=== PATIENT | male | born 1940 | race Caucasian/White ===

== ENCOUNTER 2019-06-08 10:10 | Inpatient (IN) | payer OTHER ==
[~2019-06-08] VITALS: Ht 180.3 cm; Wt 95.6 kg
--- NOTE | ~2019-06-08 | D ---
[facility] [place] [address] DISCHARGE SUMMARY Name: GURINDER PACHECO Room #: 521A-A [facility] IN M.R.#: [id number] Admission: 06/08/19 Attend Phys: Evan Argueta DO Discharge: 06/23/19 Date of : 38 Report #: [id number] THIS REPORT FOR: cc: Paola Banks Rita M. DO Kerstein, Andrew H. DO ~ THIS REPORT FOR: //name// CC: Evan Banks DATE OF SERVICE: 06/23/2019 PSYCHIATRIC DISCHARGE SUMMARY ATTENDING PHYSICIAN: Evan Argueta DO. TANK FARM GAUGER AT THE TIME OF DISCHARGE: Ghulam Cornejo MD DISCHARGE DIAGNOSES: Major neurocognitive disorder, likely due to Alzheimer's disease with possible vascular component with behavioral disturbance, improved. 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 MEDICAL COMORBIDITIES: Include atelectasis, resolved; hypertension; diabetes mellitus type 2 ____ in the hospital; hyperlipidemia. DIET: Diabetic and heart healthy. ACTIVITY LEVEL: As tolerated. The patient will require 24/ supervision assistance. The patient is going to ____. Psychiatric and medical care to be performed by receiving facility. REASON FOR ADMISSION: Back on 06/08/2019, brought to the ER by family for psychosis and delusional behavior. The patient was living with his , but seems to be interfering with peaceful enjoyment and care. HOSPITAL COURSE: The patient was admitted to Geriatric Psychiatry Unit. He had no prior history of dementia diagnosis. Neuropsychological battery was done. It came back, done by Dr. Carlos Neff, with a diagnosis consistent with Alzheimer's, possibly vascular cause as well. The patient was rather objectionable about going to the facility and having his Uli HAIR involved. On the day of discharge, the patient said a family helper/driver is coming from [place], [place] and as far as I know, a basic financial power of helper/driver was completed. The helper/driver doing it was presented with his present limited capacity. [facility] [address] [place] [address] DISCHARGE SUMMARY Name: GURINDER PACHECO Room #: 521A-A [facility] IN .R.#: [id number] Admission: 06/08/19 Attend Phys: Evan Argueta DO Discharge: 06/23/19 Date of : 38 Report #: [id number] Several family meetings were held and the patient was paranoid about his Uli HAIR, managing his affairs so, the daughters who lived in the [place] area were a big help in getting meetings done and getting in place. The patient was ultimately placed and ____. DISCHARGE MEDICATIONS: 1. Sertraline 50 mg p.o. daily. 2. Tradjenta 5 mg p.o. daily. 3. Cyanocobalamin 1000 mcg p.o. daily. 4. Metformin 500 mg p.o. at bedtime. 5. Aspirin 81 mg p.o. daily. 6. Depakote 1250 mg p.o. daily. 7. Melatonin 5 mg p.o. at bedtime. 8. Irbesartan 300 mg p.o. daily. 9. Spironolactone 25 mg p.o. daily. 10. Pravastatin 20 mg p.o. daily. VITAL SIGNS: Stable. MENTAL STATUS EXAMINATION: This is a well-developed male, wearing glasses, using a walker. Attention limited. Concentration limited. Speech is normal rate. Thought process is linear and goal directed. Thought content focused on discharge. No psychomotor agitation. No psychomotor retardation. Denied SI or HI. Denied hopelessness or helplessness. No homicidal intent or plan. Memory noted to be impaired. Insight impaired. Judgment limited. Fund of knowledge, currently in the average range. REPEAT VITAL SIGNS: Temperature 36.6, pulse 87, respirations 16, BP 154/84, O2 sat 97% that was this morning. PROGNOSIS: For this patient is guarded given his major neurocognitive disorder, memory care placement. By: [id number] Evan Argueta, /nt
[2019-06-08 10:16] VITALS: BP 140/74
[2019-06-08] MEDS ORDERED: ZOLOFT100 MG PO (10:33)
[2019-06-08] MEDS ORDERED: ASA81BEC PO (10:33)
[2019-06-08] MEDS ORDERED: PRAVACHOL 20 MG20 M1 PO (10:34)
[2019-06-08] MEDS ORDERED: SPIRONOLACTONE25 MG PO (10:34)
[2019-06-08] MEDS ORDERED: AVAPRO300 MG PO (10:34)
[2019-06-08] MEDS ORDERED: KLOR-CON M2020 MEQ PO (10:34)
[2019-06-08] MEDS ORDERED: OCUVITE TABLET1 EAC1 PO (10:34)
[2019-06-08] MEDS ORDERED: JANUVIA100 MG PO (10:34)
[2019-06-08] MEDS ORDERED: VITAMIN D310000 UNIT PO (10:35)
[2019-06-08] MEDS ORDERED: ARICEPT10 M1 PO (10:35)
[2019-06-08 10:59] LABS: ABSOLUTE NEUTROPHILS 4.5 thou/uL (1.4-8.2); BASOPHILS 1.2 % (0.0-2.0); EOSINOPHILS 3.3 % (0.0-3.0); HEMATOCRIT 41.6 % (42.0-52.0); HEMOGLOBIN 14.1 gm/dL (14.0-18.0); LYMPHOCYTES 17.3 % (24.0-44.0); MCH 30.2 pg (26.0-34.0); MCV 88.7 fL (80.0-100.0); MONOCYTES 8.9 % (1.0-8.0); PLATELET COUNT 152 thou/uL (150-400); POLYS 69.3 % (36.0-66.0); RBC 4.68 mil/uL (4.50-6.00); RDW 13.9 % (10.5-14.5); WBC 6.6 thou/uL (4.0-11.0)
[2019-06-08 11:01] LABS: URINE BILIRUBIN NEGATIVE (Negative); URINE BLOOD NEGATIVE (Negative); URINE CLARITY CLEAR; URINE COLOR YELLOW; URINE GLUCOSE-RANDOM* NEGATIVE (Negative); URINE KETONES NEGATIVE (Negative); URINE LEUKOCYTES-REFLEX NEGATIVE (Negative); URINE NITRITE-REFLEX NEGATIVE (Negative); URINE PROTEIN (DIPSTICK) NEGATIVE (Negative); URINE UROBILINOGEN 0.2 E.U./dl (0.2-1.0)
[2019-06-08 11:19] LABS: ANION GAP 9 mmol/L (7-16); BUN 18 mg/dL (7-18); CALCIUM 9.4 mg/dL (8.5-10.1); CHLORIDE 104 mmol/L (98-107); CO2 27 mmol/L (21-32); CREATININE 1.1 mg/dL (0.7-1.3); GLUCOSE 104 mg/dL (74-106); POTASSIUM 4.2 mmol/L (3.5-5.1); SODIUM 140 mmol/L (136-145)
[2019-06-08 11:25] LABS: AMP/METHAMP Negative (Negative); BARBITURATES Negative (Negative); BENZODIAZEPINES Negative (Negative); COCAINE Negative (Negative); METHADONE Negative (Negative); OPIATES Negative (Negative); PCP Negative (Negative)
[2019-06-08 11:29] LABS: MAGNESIUM 2.1 mg/dL (1.8-2.4); SGOT 18 U/L (15-37); SGPT 24 U/L (30-65); TOTAL BILIRUBIN 0.4 mg/dL (<0.1-1.0); TOTAL PROTEIN 7.4 g/dL (6.4-8.2); TROPONIN-I <0.06 ng/mL (<0.06)
[2019-06-08 11:30] LABS: SALICYLATE < 2.8 mg/dL (2.8-20.0)
[2019-06-08 13:14] VITALS: BP 142/86
--- NOTE | 2019-06-08 14:04 | NUR ---
I was asked to assess German to see if he meets criteria for [facility]. I met with German, he is A/Ox4. German is experiencing paranoia. He informed me that someone has gotten a hold of his insurance records and financial records. He is experincing memory problems. He informed me that he lives in [facility]. He family informed me he in a long-term in the[place], [place] area. His family reports that he has been verbally aggressive with a resident at the long-term. Dr. Argueta will accept this patient.
[2019-06-08 14:31] VITALS: BP 138/79
--- NOTE | 2019-06-08 15:03 | EKG ---
[place] [address] [address] [facility] [place] [address] ELECTROCARDIOGRAM REPORT Name: GURINDER PACHECO Room #: 517-A ADM IN M.R.#: [id number] Admission: 06/08/19 Attend Phys: Evan Argueta DO Discharge: Date of : 38 Report #: [id number] THIS REPORT FOR: //name// ED Test Date: 2019-06-08 Test Time: 11:15:55 Pat Name: GURINDER PACHECO Department: Room: [facility] Gender: M Speaker Mounter: TERESA : 1940 Requested By: Sorin Rai Order Number: [id number] MD: Nba Reese Measurements Intervals Era Rate: 75 P: 45 IN: 241 QRS: -94 QRSD: 146 T: 40 QT: 444 QTc: 496 Interpretive Statements Sinus rhythm 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
--- NOTE | 2019-06-08 15:12 | NUR ---
DISCHARGE INSTRUCTIONS REVIEWED WITH PATIENT AND FMAILY INCLUDING DISCHARGE MEDICATIONS AND F/U RECOMMENDATIONS. PT/FAMILY DENY COMPLAINTS AND CONCERNS AND STATE UNDERSTANDING OF ABOVE. PT ESCORTED OFF FLOOR AT 1430 ACCOMPNIED BY NURSING STAFF AND FAMILY TO FAMILY PRIVATE VEHICLE-ALERT AND COOPERATIVE AT TIME OF DC-UP IN MOOD AND SMILING-DENIES COMPLAINTS/CONCERNS.DENIES SUICIDAL/HOMICIDAL OR SELF HARM THOUGHTS AT TIME OF DC
[2019-06-08 15:35] VITALS: BP 161/84
[2019-06-08 16:56] VITALS: BP 161/84
--- NOTE | 2019-06-08 17:03 | NUR ---
PT ARRIVES TO FLOOR VIA WC FROM ER ACCOMPNIED BY DAUGHTER. PT REPORTED TO LIVE AT [facility] AND AT ASSISTED LIVING HAS BEEN REPORTED TO BE INCREASINGLY PARANOID,HAVING VERBAL AGGRESSION TOWARD NURSING STAFF,REFUSING CARES AND MEDS AT ASSISTED LIVING,NOT SLEEPING AT NIGHT PER INTAKE SHEET-PT IS UNCOOPERATIVE WITH INTERVIEW STATING HE "DOESN'T NEED TO BE HERE" AND DENIES ANY RECENT PROBLEMS OR CONCERNS AT ASSISTED LIVING. FAMILY NOT PRESENT AT TIME OF NURSING ADMIT ASSESSMENT AND NO [place] RECORDS OR ER DOCUMENTATION AVAILABLE SO LIMITED BEHAVIORAL AND MEDICAL HISTORY AVAILABLE. THIS RN WILL ATTEMPT TO CALL FAMILY MEMBERS FOR ADDITIONAL INFORMATION. IS NOTED TO HAVE UNSTEADY GAIT AND IS NOT COMPLIENT WITH REQUESTS TO USE PRESSLEY INSISTING ON GETTING CHORDED CALL LIGHT OR GETS UP ON OWN-ASKING FOR PHONE REPEATDLY AND OVERHEARD IN ROOM CALLING VARIOUS PEOPLE ON PHONE ASKING THEM TO COME AND GET HIM AND TELLINF THEM HE DOESN'T NEED TO BE HERE. BP INITALLY ELEVATED AT UPON ARRIVAL TO UNIT AT 171/84-MANUAL RECHECK 142/[address] BONILLA HERE TO SEE PT AT APPROX. 1615-BS OBTAINED AT 1745 AND IS 165
--- NOTE | 2019-06-08 17:18 | NUR ---
PER PTS DAUGHTER JENA MAYERS PT IS REPORTED TO THINK DAUGHTERS ARE TAPPING HIS PHONE AT [facility]-THINKS DAUGHTER IN LAW IS HAVING AFFAIR WITH HIM AND THAT SHE AND SON ARE GETTING A DIVORCE-BELIEVES THAT [facility] IS PUTTING LAXATIVES IN HIS FOOD AND GETTING DIABETIS MEDICINE FROM [place]-FREQUENTLY REFUSING TO TAKE MEDICATION D/T BELIEVING IT IS TAINTED,WANTS TO FOOD AT [facility] ANALYZED D/T BELIEVING FAKE BEEF IS BEING USED. VERY ABUSIVE TO -CALLING HER REPEATDLY,TELLING HER THAT SHE IS STUPID OR AN IDIOT AND STATING SHE EATS DOG FOOD
[2019-06-08 19:37] VITALS: BP 123/62
--- NOTE | 2019-06-08 19:59 | NUR ---
ASSUMED CARE ON 06/08/19 @ 19:15, IN BED, AWAKE AND ORIENTED X2-3. COOPERATED WITH ASSESSMENT, HRRR, S1S2 NOTED, LUNGS CTA, ABD NORMOACTIVE X 4Q, REPORTS HAVING A BM TODAY. DENIES PAIN. DENIES SI OR HI, DENIES AH/VH. BED IN LOW POSITION, WILL CONTINUE TO OBSERVE Q 12 MINUTES FOR PATIENT SAFETY.
--- NOTE | 2019-06-09 00:17 | NUR ---
WHEN OFFERED PO HS MEDS, PATIENT PUT THE TABLETS IN HIS PANTS AND FAKED SWOLLOWING THEM. REFUSED TO GIVE THE TABLETS BACK, AND WOULD NOT ALLOW STAFF TO LOOK IN HIS POCKETS. A SECOND NURSE RETURNED WITH TO LOOK FOR THE PILLS. PATIENT THEN ALLOWED US TO LOOK IN HIS POCKET AND STOOD UP TO SEE IF THE PILLS WOULD FALL OUT. WHEN INVENTORY WAS DONE ON PATIENT'S WALLET, THE THREE PILLS WERE FOUND IN IT. PATIENT AMBULATED TO THE NURSES DESK AND DEMANDED A PHONE CALL TO CALL HIS . PATIENT WOULD NOT ACCEPT THE EXPLAINATION THAT PHONE CALLS ARE NOT ALLOWED THIS LATE AT NIGHT. HE CONTINUED TO ARGUE AND PHYSICALLY BLOCK THE DOOR TO THE NURSES STATION, KEEPING STAFF FROM EXITING AND ENTERING. ORDER OBTAINED FROM DAY COHEN ENERGY SCHEDULER FOR GEODON 10MG IM. GIVEN WITH X2 AND THEN X3 STAFF, WITH X2 AT FIRST AND THEN X4 SECURITY ASSISTANCE. PATIENT WAS KICKING STAFF, HITTING STAFF AND ROLLING AWAY FROM THE INJECTION RESULTING IN PATIENT NOT GETTING A FULL INJECTION. DAY COHEN INFORMED OF THE PROBLEM, AND HE GAVE THE ORDER TO WAIT 30 MINUTES AND SEE WHAT HIS LEVEL OF VIOLENCE AND AGITATION WOULD BE AT THAT POINT. PATIENT CONTINUED TO ARGUE, TO REFUSE TO SIT OR LIE ON THE BED AND GET UP. X1 SECURITY AND X1 NURSING STAFF AT BEDSIDE TO OBSERVE FOR PATIENT'S SAFETY.
--- NOTE | 2019-06-09 00:28 | NUR ---
PATIENT REFUSED TO GIVE UP HIS WATCH, AND FOUGHT WITH SECURITY THEY TOOK HIS WATCH OFF, CAUSING SKIN TEARS ON HIS LEFT HAND AND LEFT FOREARM. AFTER 30 MINUTES OF PATIENT ARGUING AND REFUSING TO LIE ON THE BED, PATIENT REQUESTED AND WAS GIVEN A URINAL AND HE VOIDED 100 CC OF CLEAR LIGHT YELLOW URINE. PATIENT LAID DOWN FOR ABOUT 10 MINUTES, BUT CONTINUED ARGUING AND TALKING ABOUT UNRELATED THINGS LIKE HIS BEING ON A DIABETIC DIET, AND HIM WANTING TO SEE THE APPRENTICE ELECTRICIAN'S PICTURES OF HER FOOD.
--- NOTE | 2019-06-09 00:37 | NUR ---
NEW ORDER OBTAINED FOR HALDOL 5 MG PO AND LORAZEPAM 1MG PO. IF PATIENT REFUSES PO OR BECOMES VIOLENT, MAY GIVE GEODON 10MG IM. IF PATIENT REFUSES PO HALDOL AND LORAZEPAM. PATIENT IS SITTING ON BED AND ARGUING ABOUT MULTIPLE TOPICS.
[2019-06-09 03:50] VITALS: BP 123/62
[2019-06-09 07:47] VITALS: BP 137/69
[2019-06-09 08:00] VITALS: BP 137/69
--- NOTE | 2019-06-09 16:14 | NUR ---
LISSETTE met with pt to get a background history. He spent much of the session talking about his and his children's achievements, and also how he believes his sons are stealing money from him. When LISSETTE asked him what brought him to the hospital, he responded his family dynamic and then began to talk about how specifically his oldest son's his planning on stealing money from his son. LISSETTE contacted [facility] assisted living and asked to speak to the DON. LISSETTE was told she was out, but a staff member who is familiar with pt will return her call. LISSETTE team will continue to follow pt during his stay on this unit.
--- NOTE | 2019-06-09 16:42 | NUR ---
LISSETTE spoke to Estefania and Amelia with [facility]. Pt does have a DPOA but it has not been enacted. Pt has been intrusive with other residents, and aggressive as of late;this is not his normal behaviors. It is Amelia's belief that pt suffers from dementia but he has not been given the official diagnosis. He also believes the detention is attempting to poison him and put him away. They said he has attempted to elope when he feels like he will be locked up. Estefania said his family has requested staff give him his meds; Amelia believes that may not be an option as pt does not trust staff at the moment. LISSETTE scheduled a family meeting with pt's for 06/12 @ 1330. SW team will continue to follow pt during his stay on this unit.
--- NOTE | 2019-06-09 18:00 | NUR ---
Assumed care of patient this am. Patient was irritable and refused medications. Patient can take medications whole. Patient ambulates with a walker and has a steady gate. Patient appeared to be suspicious this am with RN. Patient states that he did not sign up to be here and that someone will "Pay" for this mistake. After much communication with the patient he calmed down and was very polite for the remainder of the day. Patient amy a graph of a piece of land that he said he plans to subdivide and sell. Patient also states that he has many credentials and that he does not need to undergo testing at this facility. Patient also expressed anger towards one of his sons. Patient is continent of bowl and bladder. Patients assesment shows clear breath sounds, active bowel sounds, and s1 s2 heard with auscultation.
--- NOTE | 2019-06-09 20:13 | NUR ---
ASSUMED CARE ON 06/09/19 @ 19:15, IN ROOM IN BED. A&OX3. DOES NOT UNDERSTAND THAT HIS BEHAVIOR AND VERBAL ABUSE ARE PROBLEMATIC. SAYS THAT HE WANTS TO WORK ON HIS JOSE L TO PROVE HIS WHEREWITHALL TO BUY PROPERTY. ALSO WANTS TO TALK ABOUT NEEDING A NEW GLASSES PRESCRIPTION. HAS DIFFICULTY IDENTIFYING GOALS FOR HIS CARE IN [facility]. DOES STATE THAT HE WANTS TO CONTROL HIS DM, AGREES TO ACCEPT INSULIN SHOT AND FSBS ACUCHECK. HRRR, S1S2 NOTED, REPORTS BM TODAY ON 06/09. ABD SOUNDS N X 4 Q. REPORTS PAIN IN HIS HANDS 05/29, DENIES DESIRE FOR TYLENOL, REPORTS IS COMFORTABLE WITH THAT LEVEL OF PAIN. STATES WANTS TO GO HOME. DIFFICULTY FOCUSING ON APPROPRIATE GOALS FOR INPATIENT PSYCHIATRIC CARE. AMBULATES WITH A WALKER, OR WITH NO WALKER, NEEDS TO BE REMINDED USE WALKER. WILL CONTINUE TO MONITOR Q 12 MINUTES FOR PATIENT SAFETY.
[2019-06-09 20:19] VITALS: BP 140/80
[2019-06-09 23:59] VITALS: BP 140/80
--- NOTE | 2019-06-10 00:12 | NUR ---
PATIENT COOPERATED WITH MEDICATION ADMINISTRATION. THIS NURSE PRESENTED MEDS IN SEALED PACKET, SHOWING THE NAMES OF THE MEDICATION AND DOSAGE, EXPLAINED THE PURPOSE OF THE MEDICATION. PRESENTED IN PILL CUP WITH FRESH ICE WATER. PATIENT TOOK THE MEDS, WAS WILLING TO SHOW THIS NURSE THAT HE HAD SWOLLOWED THE PILLS. PATIENT DID NOT POCKET MEDS OR PRESENT ANY BEHAVIOR OF AVOIDING MEDICATION. CALM AND PLEASANT AFFECT NOTED. EDUCATION PROVIDED THAT IF THERE WERE ANY MEDICATIONS THAT HE WAS UNCOMFORTABLE TAKING, FOR PROCEDURE TO SPEAK TO THE DOCTOR IN MORNING ROUNDING AND DISCUSS THE MEDICATION. PATIENT EXPRESSED TRUST IN THIS NURSE AND HIS DAY NURSE, AND AGREED TO TAKE MEDICATIONS AND PARTICIPATE IN GROUP THERAPY. PATIENT WAS CONVERSATIONAL AND SHARED HIS INTERESTS IN [facility]. PT SPOKE OF HIS AND FOUR CHILDREN IN GENERAL POSITIVE TERMS. SLEEPING OF THIS WRITING. BED IN LOW POSITION, WILL CONTINUE TO ROUND Q 12 MINUTES FOR PATIENT SAFETY.
--- NOTE | 2019-06-10 05:50 | NUR ---
SLEPT 7.6 HOURS OVERNIGHT. @ 05:45 PHLEBOTAMY STAFF ATTEMPTED TO DRAW LABS, WHICH HE REFUSED, SAYING THAT HE NEEDED TO KNOW WHAT SCHOOL THE PHLEBOTAMIST ATTENDED, WHERE IS THE DOCTORS ORDER FOR THE LAB IS, WHERE ARE THE OTHER RN NURSES. PATIENT CAME OUT TO THE NURSES DESK AND BECAME INTRUSIVE AND DEMANDING, INTERFERING IN CARE OF OTHER PATIENTS. ESCORTED BACK TO HIS ROOM.
[2019-06-10 07:39] VITALS: BP 137/78
[2019-06-10 09:58] VITALS: BP 137/78
--- NOTE | 2019-06-10 10:10 | NUR ---
0648 RESUMMED CARE FROM OVERNIGHT SHIFT, PATIENT GOT UP WENT TO DAY ROOM. PATIENT ATE BREAKFAST TOOK MEDICATION WITHOUT INCIDENCE, PATIENT COOPERATIVE CALM THIS AM. WILL COTINUE TO MONITOR PATIENT FOR BEHAVIORS AND SAFETY.
--- NOTE | 2019-06-10 10:36 | NUR ---
LISSETTE called and spoke with Marilyn and she stated that her brother Uli Laguna was the DPOA
[2019-06-10 15:36] LABS: TSH 3.103 uIU/mL (0.358-3.740)
[2019-06-10 19:35] VITALS: BP 140/74
[2019-06-10 21:24] VITALS: BP 140/71
--- NOTE | 2019-06-10 22:02 | NUR ---
PATIENT WAS COOPERATIVE TONIGHT. HIS GLUCOSE WAS 118. HE DID TAKE HIS MEDS WHOLE. URINAL PLACED AT BEDSIDE. PATIENT DENIES PAIN. HE IS CALM WITH OCCASIONAL IRRITABILITY IN VOICE. PATIENT SLEEPING NOW.
--- NOTE | 2019-06-11 04:29 | NUR ---
PATIENT WAS UP TO BATHROOM AND BACK TO BED. PATIENT AMBULATES WITH WALKER. HE HAS BEEN COOPERATIVE AND REDIRECTABLE TONIGHT. PATIENT IS BACK TO BED AND SLEEPING AT THIS TIME. BED ALARM ON AND BED IN LOW POSITION.
[2019-06-11 07:47] VITALS: BP 126/75
--- NOTE | 2019-06-11 11:01 | NUR ---
Jamila ENRIQUEZ) with [facility] contacted SW team and left her contact information if there were further questions about pt. [phone]. SW team will continue to follow pt during his stay on this unit.
--- NOTE | 2019-06-11 12:15 | NUR ---
0700: Sitting in bed without s/o distress. Alert and orientated X4. States he wants to go home to take care of his . Calm, cooperative and compliant. Denies pain, SI/HI. Breath sounds clear t/o, bilaterally equal. Reg HR auscultated. Color pink with brisk capillary refill and palpable peripheral pulses. Clear yellow urine per urinal. Active bowel sounds over soft, rounded abdomen. Ambulates with walker without difficulty, steady gait. 1220 Daughter and son called. Participating in groups. No s/o distress. PT here this AM assessing pt.
[2019-06-11 18:09] LABS: SYPHILIS AB Non Reactive (Non Reactive)
[2019-06-11 19:26] VITALS: BP 139/69
--- NOTE | 2019-06-11 20:00 | H ---
[facility] [place] [address] HISTORY AND PHYSICAL Name: GURINDER PACHECO Room #: 517-A ADM IN M.R.#: [id number] Admission: 06/08/19 Attend Phys: Evan Argueta DO Discharge: Date of : 38 Report #: [id number] THIS REPORT FOR: //name// CC: Evan Guevara Oplotnik DATE OF SERVICE: 06/08/2019 INPATIENT PSYCHIATRIC EVALUATION ATTENDING PHYSICIAN: Evan Argueta DO. AIR INTERCEPT CONTROLLER: Josselyn Montanez MD REASON FOR ADMISSION: Psychosis, obstructive behaviors with the patient having a diagnosis of dementia. SOURCES OF INFORMATION: Brief interview with the patient, brief interview with family. It should be noted that the family was in the lobby, but the patient's spouse fell in the restroom and I could not get appropriate conversation because of that situation and affidavits. HISTORY OF PRESENT ILLNESS: This is a 78-year-old overweight male. Affidavit from Tita Pacheco Carlos, this is a daughter, states I witnessed my dad's behavior get continually worse. He thinks I bugged his cell phone and listening, blocked numbers, tampered with it. He reads all the text messages I sent my mom and he wants her to only speak to me on speakerphone. He is convinced where they lived at [facility] they are putting laxatives in the food they eat. They are feeding fake beef and wants the food analyzed. He thinks myself and my siblings are all getting a divorce, talks in circles about schemes and plots of a banker and his united states attorney and my brother involved and making no sense. Asked some of the questions of healthcare providers where we got to agree. If a minority, how they got here. Thinks Cortez is from [place] and not really a medication. He refused medication in last hospital stay, refused treatment and taking meds at home. Told by mom, she is so dumb, she would eat dog food. He is convinced son and getting , told him his banker told him he is having an affair with his yeoqtctw-zv-spx. Son and all of his kids certified letters claim that he will maria t brother over land exchange 10+ years ago. Thinks he has a ton of money, obsessed with money. On , he was difficult, ____ and my sister's living room and asked me if I saw it. Second affidavit from Talya Pacheco: He has accused me of bugging his phone and listening to his calls, has accused me of not paying for property that I purchased from him 15 years ago. Numerous verbally abusive phone calls telling people I am getting , not true, so this must be his . In summer, became very difficult, verbally abusive to the [facility] staff because he thought they were trying to commit him. Staff called me to [facility] [address] [place] [address] HISTORY AND PHYSICAL Name: GURINDER PACHECO Room #: 517-A [facility] IN M.R.#: [id number] Admission: 06/08/19 Attend Phys: Evan Argueta, Discharge: Date of : 38 Report #: [id number] talk to him. He has threatened to maria t me, acting rude and disorderly at [facility]. In early summer 2018, he was at [facility], was delusional and accused staff there of partying all night, crawled up the windows and partied on the roof. He accused my mother being so dumb she would eat dog food. The patient was medically cleared in the Emergency Room today by Dr. Rai. He noted that the patient moved to [facility] from [place], [place] 2 years ago, residing at [facility] with his . He commented on the paranoia and aberrant behavior, stated in the affidavits. The patient had no physical complaints, denied headache, fever, chills, cough, chest pain, shortness of breath, abdominal pain, nausea, vomiting or diarrhea. PCP is Dr. Banks in [place], toppiece cutter at [facility]. HOME MEDICATIONS: Aspirin 81 mg p.o. daily, sertraline 150 mg p.o. daily, sitagliptin phosphate which is Januvia 100 mg p.o. daily, irbesartan 300 mg p.o. daily, spironolactone 25 mg p.o. b.i.d. Vitamin A, C and E that is combination of vitamin, pravastatin which is Pravachol 20 mg p.o. daily, potassium chloride 20 mEq p.o. daily, donepezil 1 tab p.o. daily, vitamin D3 10,000 units p.o. weekly. ALLERGIES: No known allergies. REVIEW OF SYSTEMS: From the ER, CONSTITUTIONAL: Denies fever, chills, malaise, unexplained weight change. EYES: Denies eye pain, visual change or discharge. HENT: Denies hearing changes, ear drainage, ear infections, ear pain, neck pain or neck stiffness. RESPIRATORY: Denies cough, shortness of breath, hemoptysis or respiratory distress. CARDIOVASCULAR: Denies chest pain, chest pain with exertion or edema. GASTROINTESTINAL: Denies abdominal pain, nausea, vomiting or diarrhea. GENITOURINARY: Denies burning, frequency or dysuria. MUSCULOSKELETAL: Denies back pain, joint pain, muscle weakness or myalgias. SKIN: Denies rash. NEUROLOGIC: Denies weakness, headache or loss of consciousness. Otherwise, 10-point review of systems negative. LABORATORY DATA: Today, CBC grossly normal. Electrolytes within normal limits except ALT of 24, albumin was 4.0. Toxicology negative. Salicylate is less than 2.8, acetaminophen less than 2, alcohol less than 10. Urinalysis was negative. The patient, on my brief interview today, was asking about using telephone, being hypervigilant, at times pestering staff. PHYSICAL EXAMINATION: GENERAL: A well-developed, unkempt male, appearing stated age. [address] [address] HISTORY AND PHYSICAL Name: GURINDER PACHECO Room #: 517-A [facility] IN ..#: [id number] Admission: 06/08/19 Attend Phys: Evan Argueta DO Discharge: Date of : 38 Report #: [id number] VITAL SIGNS: On admission are as follows: Temperature 36.8, pulse 68, respirations 18, BP 123/60, O2 sat 97%. MUSCULOSKELETAL: Fairly normal gait and station, states he uses a cane. I gave him a walker instead. MENTAL STATUS EXAMINATION: This is a well-developed, well-nourished, overweight male, wearing glasses, appearing stated age. Attention limited. Concentration limited. Speech is normal in rate, volume and tone. Thought process linear and goal oriented. Thought content focused on not being here, guarded, paranoid. Some psychomotor agitation. No psychomotor retardation. Denied SI or HI. Some helplessness. Denied hopelessness. Memory noted to be impaired, but not formally tested. Insight impaired. Judgment impaired. Fund of knowledge well below average. FORMULATION: A 78-year-old male, brought by family, known history of dementia, so being [facility] under [facility] with the above-stated concerns. DIAGNOSES: At this time, major neurocognitive disorder, likely Alzheimer's variant with behavioral disturbance, numerous comorbidities including diabetes mellitus, hypertension and hyperlipidemia. PLAN: Evaluate, stabilize, obtain collateral. Already the patient received an intramuscular injection of Geodon this evening. I think under the circumstances, we will decrease the sertraline to 50 mg p.o. daily and tomorrow I will start him on a scheduled antipsychotic regimen. This will have to be backed up by an injectable, I think, initially. ESTIMATED LENGTH OF STAY: 10-14 days. STRENGTHS: He has supportive family, insured. WEAKNESSES: Advancing disease, poor insight. At least 45 minutes was spent on interview, review of records, coordination of care. <ELECTRONICALLY SIGNED> By: Evan Argueta DO 06/11/191999 2223 [id number] Evan Argueta DO /nt
[2019-06-11 21:25] VITALS: BP 139/69
--- NOTE | 2019-06-12 02:21 | NUR ---
PATIENT HAS BEEN CALM AND COOPERATIVE TONIGHT. HE DID TAKE HIS MEDS WHOLE AND WITHOUT ISSUE. IT WAS NOTED ON DAY SHIFT THAT HIS BUTTOCKS ARE STARTING TO GET RED FROM SITTING. PATIENT WOULD NOT LET ME ASSESS BUT BARRIER CREAM IN ROOM THAT HE CAN APPLY TO BUTTOCKS WHEN USES THE RESTROOM. PATIENT IS UP IN ROOM AND USES WALKER. PATIENT DENIES PAIN. NO EDEMA VSS. BED IN LOW POSITION. PATIENT HAS BEEN MORE SUBDUED TONITE AND NOT IRRITABLE. NOT SURE IF PATIENT IS STILL PROCESSING RESULTS OF COGNITIVE TESTS THAT WERE TOLD TO HIM EARLIER THAT WERE NOT RESULTS HE WANTED OR EXPECTED. BED IN LOW POSITION AND ROUTINE ROUNDING. PATIENT IS SLEEPING AT THIS TIME.
[2019-06-12 08:59] VITALS: BP 140/87
--- NOTE | 2019-06-12 14:01 | NUR ---
Don's family brought in clothing, and hygene items. These items were entered on the inventory sheet and what he could not have was lock up with hi other personal items.
--- NOTE | 2019-06-12 16:30 | NUR ---
LISSETTE attended a family meeting with pt's two daughters Marilyn and Jamila present, the psych doctor, and Nia via phone. The psych doctor explained pt's neuropsych report and next steps were discussed. Pt currently lives at [facility] in the [facility] with his ; he now needs memory care. The family will discuss this weekend if they will move both their mother and pt to the memory car unit, or if they will separate the two. They will let SW know on Saturday. LISSETTE gave Jamila and Marilyn a list of NH facilities in their area. LISSETTE team will continue to follow pt during his stay.
--- NOTE | 2019-06-12 19:08 | NUR ---
patient up on unit most of the day. ambulates around with a shuffle. affect flat amd mood detached. will converse if approached. questions where is. looking forward to going back to facility. has shoes with strings. claims had five days and no one mentioned. cannot walk safely without support around ankes - med compliant. showered and shaved. tolerated well. no aggression or agitation noted. comes out for meals but has tendency to venture back to room. daughter visited and went well.
[2019-06-12 19:28] VITALS: BP 106/57
--- NOTE | 2019-06-13 03:10 | NUR ---
ASSUMED CARE OF PATIENT ON 06/12/2019 AT 1915, UPON ONE TO ONE WITH PATIENT HE APPEARS WITH A BLUNTED AFFECT, MAINTAINS POOR EYE CONTACT, AND PROVIDES ONE WORDED ANSWERS TO ASSESSMENT QUESTIONS. HE IS MEDICATION COMPLIANT AT THIS TIME. THIS NURSE EDUCATED PATIENT ON MEDICATIONS AND S/E. HE WAS IN AGREEMENT AND TOOK MEDICATION WHOLE. HE DENIES SI HI WELL HALLUCINATIONS. HE HAS NOT DISPLAYED ANY AGGRESSIVE BX AT THIS TIME. HE DENIED MEDICAL CONCERNS, BS 141 AT , NO INSULIN GIVEN PER SLIDING SCALE. HE DOES NOT APPEAR TO BE IN MEDICAL DISTRESS. NURSING WILL MAINTAIN ALL PRECAUTIONS OT ENSURE SAFETY AT ALL TIMES.
[2019-06-13 08:34] VITALS: BP 155/93
--- NOTE | 2019-06-13 09:43 | NUR ---
0715 ASSUMED CARE OF PATIENT ON 06/13/19. 0800 PATIENT SITTING IN WC IN DAYROOM EATING BREAKFAST ASSESSMENT COMPLETED AT 0820, PATIENT DENIES PAIN, SI/HI AND AVH. PATIENT CALM AND COOPERATIVE. MEDS TALKEN WHOLE WITHOUT DIFFICULTY. PATIENT STATES GOAL IS " TO GET OUT". PATIENT SAYS HIS CONCERN FOR TODAY IS TO GET BACK WITH HIS BECAUSE SHE HURT HER LEG AND HE NEEDS TO HELP HER. PATIENT ASKS WHEN THIS WILL HAPPEN, WRITTER EXPLAINS THAT DISCHARGE WILL BE ADDRESSED BY DR BUT DUE TO THE WEEKEND IT WILL NOT BE TODAY. PATIENT VOICED UNDERSTANDING.
--- NOTE | 2019-06-13 15:47 | NUR ---
1430 PATIENT WATCHING TV DENIES NEEDS. PATIENT ASKED WHITING CAN WORKER IF THERE WAS INFORMATION IN REGARDS TO HIM GETTING OUT OF HERE YET. ASSURED PATIENT THAT SOON ANY INFORMATION ABOUT DISCHARGE WAS AVAILABLE THAT STAFF WILL LET HIM KNOW. 1500 PATIENT NOTED WITH EYES CLOSED IN DAYROOM SITTING IN WC.
--- NOTE | 2019-06-13 19:48 | NUR ---
ASSUMED CARE ON 06/13/19, @ 19:15, IN BED EYES CLOSED, RESPIRATIONS EVEN AND UNLABORED.
--- NOTE | 2019-06-13 21:19 | NUR ---
REFUSED NYSTATIN POWDER. FSBS 113, NO S/S INSULIN INDICATED. TOOK MEDS WHOLE WITH WATER, WITHOUT DIFFICULTY. BED IN LOW POSITION, BED ALARM SET, WILL CONTINUE TOMONITOR Q 12 MINUTES FOR PATIENT SAFETY.
[2019-06-13 21:28] VITALS: BP 155/93
--- NOTE | 2019-06-14 06:05 | NUR ---
SLEPT 9.6 HOURS
--- NOTE | 2019-06-14 07:30 | NUR ---
Assumed care of patient this am. Patient in good spirits, calm and cooperative. Patient ambulating with a wheelchair this morning. Patient denies si/hi. Patient takes medications whole with thin fluids. Patients assessment shows clear breath sounds, active bowel sounds, and s1 s2 heard with auscultation.
[2019-06-14 08:00] VITALS: BP 160/87
[2019-06-14 08:17] VITALS: BP 160/87
--- NOTE | 2019-06-14 13:51 | NUR ---
PT SITTING UP IN BED WATCHING TV, DENIES NEEDS AT THIS TIME.
[2019-06-14 19:10] VITALS: BP 168/84
[2019-06-14 21:19] VITALS: BP 168/84
--- NOTE | 2019-06-14 23:41 | NUR ---
PATIENT HAS BEEN IN BED TONIGHT. DID ASSIST PATIENT IN CHANGING HIS CLOTHES FOR BED. NYSTATIN POWDER APPLIED TO RED/PINK AREA OF BUTTOCKS. PATIENT DENIES PAIN. PATIENT WAS INCONTINENT OF URINE TONIGHT. HE DID ASK FOR SOMETHING FOR HIS BOWELS TONIGHT. HE DID HAVE A BM BUT WAS DIFFICULT FOR HIM TO PASS. MOM 10ML WAS GIVEN. TYLENOL 650MG GIVEN FOR GENERAL ACHES AND TO HELP HIM SLEEP. PATIENT HAS BEEN ANXIOUS AND IRRITABLE TONIGHT WHEN I CAME IN WHEN PRESSLEY WAS RUNG. HE STATES HE WANTS SOMEONE RIGHT AWAY AND TOLD HIM I CAME WITHIN 10 MINUTES, THAT I WAS WITH ANOTHER PATIENT. PATIENT IS CONFUSED ON TIME AND DATE AND FORGETS WHAT HE HAS SAID AND REPEATS HIMSELF. THINK PATIENT WAS IRRITABLE D/T HE GETS SCARED TO BE LEFT ALONE AT TIMES. HE LIKES TO HAVE LIGHTS ON IN HIS ROOM WHEN HE SLEEPS AND THE DOORS OPEN WITH LIGHT COMING IN. PATIENT CALMS I SPEAK WITH HIM IN CALM VOICE AND JUST NEEDS REASSURANCE THAT HE IS SAFE AND BEING TAKEN CARE OF. BSC NEXT TO BED AND URINAL ON BEDSIDE RAIL. BED ALARM ON. WALKER NEXT TO BED. WILL CONTINUE TO MONITOR.
[2019-06-15 07:22] VITALS: BP 161/92
--- NOTE | 2019-06-15 10:46 | NUR ---
0700 Lying supine in bed. Orientated X3, sleepy. Calm and cooperative. Denies pain, SI/HI. Breath sounds clear t/o, bilaterally equal. Color pink with brisk capillary refill and palpable peripheral pulses. Reg HR auscultated. BP 168 systolically in R arm, 161 in left arm. Will recheck before lunch. Yellow urine per toilet. Active bowel sounds over soft, rounded abdomen. Buttocks slightly reddened, fungal ointment applied. Ambulates with walker with very slow gait. 1000 Ate breakfast without difficulty. 3 U insulin given per R arm for BG of 152. Participating in groups. No s/o distress.
[2019-06-15 11:34] LABS: CALCIUM 9.4 mg/dL (8.5-10.1); CREATININE 0.9 mg/dL (0.7-1.3); POTASSIUM 4.1 mmol/L (3.5-5.1)
--- NOTE | 2019-06-15 12:55 | NUR ---
SW received an email from pt's daughter stating her and her siblings have looked into [facility], and have put down a desposit. They asked that a referral be sent there. LISSETTE called petar Ramírez and confirmed their fax # is [phone]. LISSETTE faxed a referral to the number given. SW team will continue to follow pt during his stay on this unit.
[2019-06-15 13:00] VITALS: BP 166/77
[2019-06-15 13:02] VITALS: BP 157/77
[2019-06-15 20:01] VITALS: BP 155/86
[2019-06-15 20:30] VITALS: BP 155/86
--- NOTE | 2019-06-15 21:15 | NUR ---
PATIENT UP TO USE HIS URINAL. NEEDS ASSIST X 1. PATIENT IS A/OX1-2. GLUCOSE AT 1940 IS 97. HS MEDS GIVEN WHOLE WITH APPLE JUICE. HE DID NOT WANT TO EAT A SNACK. PATIENT IS CALM AND COMPLIANT. HE DID HAVE BM TODAY. HE DENIES PAIN. VSS STABLE. NYSTATIN POWDER APPLIED TO PINKENED AREA AT BUTTOCKS CRACK AREA. BSC AND WALKER BESIDE BED. BED IN LOW POSITION. BED ALARM ON. ROUTINE ROUNDING. PATIENT STATES HE HAD A GOOD DAY AND WENT TO GROUPS. HE CAN'T REMEMBER WHAT HE LEARNED IN GROUPS AND STATES HE DOESN'T KNOW IF THEY ARE HELPING HIM. HE DOES ASK FOR THE TIME FREQUENTLY TO HELP REORIENT HIMSELF. WILL CONTINUE TO MONITOR.
--- NOTE | 2019-06-16 04:09 | NUR ---
PATIENT LESS DIAPHORETIC AND WALKING GAIT MORE STEADY TONITE. COULD BE FROM HALDOL BEING D/C'D? PATIENT UP TO BATHROOM TOILET TWICE. DENIES PAIN. NO BEHAVIORS. BACK TO BED. BED IN LOW POSITION AND BED ALARM ON. CONTINUING TO MONITOR.
[2019-06-16 09:06] VITALS: BP 178/93
[2019-06-16 14:00] VITALS: BP 170/77
[2019-06-16 14:01] VITALS: BP 163/90
--- NOTE | 2019-06-16 14:38 | NUR ---
Pt asked LISSETTE if his will be moving to [facility]. SW confirmed with pt's children that his will be moving too. The plan is for his to remain in ass. living and he to be in memory care; they will be down the [place] other. SW provided pt an update on that his will be moving also. SW team will continue to follow pt during his stay on this unit.
--- NOTE | 2019-06-16 14:52 | NUR ---
Lying supine in bed without s/o distress. Alert and orientated X3. Denies SI/HI. Wants to be discharged. Breath sounds clear t/o, bilaterally equal. Reg HR auscultated. Color pink with brisk capillary refill and +2 edema in lower extremities. Remains hypertensive with BP 178/93. Yellow urine per brief. Active bowel sounds over soft, rounded abdomen. Requires minimal assistance with standing and then uses walker to ambulate around unit. Slow, regular gait. 1430 Pericare done. Incontinent of yellow urine in brief, but then used urinal to void an additional 100 ml yellow urine. BP repeated in both arms and Dr. Montanez notified of results. Increasing Lorsartan and changing diet to heart healthy.
[2019-06-16 19:15] VITALS: BP 117/57
[2019-06-16 20:52] VITALS: BP 175/57
[2019-06-16 21:00] VITALS: BP 175/57
--- NOTE | 2019-06-16 23:01 | NUR ---
Pt. laying in bed at start at shift. Pt. used valerio to call for assistance to stand and urinate. Pt. was 1 person assist to stand with walker and hold urinal. He voided 100 cc clear yellow urine. Pt. is able to make needs known and call for assistance when needed.
[2019-06-17 07:30] VITALS: BP 147/87
[2019-06-17 09:53] VITALS: BP 147/87
--- NOTE | 2019-06-17 13:14 | NUR ---
Date of Admission: 06/08/19 Date of Activity Therapy Assessment: 06/11/19 Activity Goal: Increase structure and socialization Initial Goal: 2 Group activities/day Weekly progress towards goal: On track Group participation level: Moderate Behaviors observed: Patient attends 50% of groups offered to him. Often times he falls asleep throughout group, but pt does not display any negative behaviors. Plan: No change towards goal
[2019-06-17 13:32] LABS: URINE BILIRUBIN NEGATIVE (Negative); URINE BLOOD NEGATIVE (Negative); URINE CLARITY CLEAR; URINE COLOR YELLOW; URINE GLUCOSE-RANDOM* NEGATIVE (Negative); URINE KETONES TRACE (Negative); URINE LEUKOCYTES TRACE (Negative); URINE NITRITE NEGATIVE (Negative); URINE PROTEIN (DIPSTICK) NEGATIVE (Negative); URINE SPECIFIC GRAVITY 1.025 (1.005-1.035); URINE UROBILINOGEN 0.2 E.U./dl (0.2-1.0)
--- NOTE | 2019-06-17 16:16 | NUR ---
In tx team it was discussed that pt's DPOA Uli would like pt to discharge on 06/24. LISSETTE contacted Uli. No answer. LISSETTE lft msg. LISSETTE responded to Jean-Pierre's email; they wanted to know about their father's regime and if he would be released before his meds were balanced. LISSETTE responded that Uli would like pt to discharge on 06/24. LISSETTE contacted the Hospitalist Tarik and asked if he could sign a document in order to enact pt's financial DPOA; their needs to be two doctor letters. He said he would do so tomorrow. LISSETTE emailed Uli and Jamila requesting their sports lawyer info so she can fax the letters once both are signed. SW team will continue to follow pt during his stay on this unit.
[2019-06-17 19:28] VITALS: BP 140/68
--- NOTE | 2019-06-18 03:59 | NUR ---
Assumed care of pt @ 1900. Pt calm et cooperative. Takes meds whole without difficulty. Pt refused to take Tamsulosin this shift et states that he is not supposed to take due to eye problems the last time he took that medication. Ambulates with assistance of walker. Currently resting in bed with eyes closed. Will continue to monitor per protocol.
[2019-06-18 07:55] VITALS: BP 154/76
--- NOTE | 2019-06-18 11:16 | NUR ---
Nutrition: pt admitted with dementia with aggressive behaviors, paranoia to H unit. Stable weights per pt. Eating very well, 100% of meals on heart healthy diet which was recently changed due to leg swelling. On spironolactone, B12 supplementation. Hx DM but BG well controlled. Pt did voice it is hard to cut up foods due to sight issues but that nsg has been assisting with this. Able to feed self. Planned D/C next week. Low risk.
--- NOTE | 2019-06-18 11:58 | NUR ---
LISSETTE received a message from Chen with [employer] that Nathaly, the admission's nurse, is out ill today but will complete the assessement with pt tomorrow between 830 and 9am. LISSETTE provided an update to pt's family via email SW team will continue to follow pt during his stay on this unit.
--- NOTE | 2019-06-18 17:50 | NUR ---
Up ambulating around unit with happy affect. Focused on potential discharge. Tylenol given for pain in R knee 09/26, decreased to 1. Denies SI/HI. Alert and orientated X4. Breath sounds clear t/o, bilaterally equal. Reg HR auscultated. Color pink with brisk capillary refill and palpable peripheral pulses. Independent with voiding. Active bowel sounds over soft, flat abdomen. Participating in groups today. No s/o distress.
--- NOTE | 2019-06-18 17:51 | NUR ---
LISSETTE received an email from Jamila asking SW to hold off on getting letters from the doctors as they are adding people to pt's DPOA docs and want the dates of the letters from the doctors to be after this change. SW team will follow pt during his stay on this unit.
[2019-06-18 19:30] VITALS: BP 133/68
--- NOTE | 2019-06-18 19:37 | NUR ---
0730 Lying supine in bed without s/o distress. Alert and orientated X3. Denies SI/HI, pain. Breath sounds clear t/o. Reg HR auscultated. Color pink with brisk capillary refill and palpable peripheral pulses. Voids per urinal in addition to urine in brief. Active bowel sounds over soft, rounded abdomen. Scrotum and buttocks pink, cleaned and ointment applied. Ambulates with walker with regular gait. 1500 Nystatin applied to buttocks after cleaning. Ambulating to dining room and back with walker. No s/o distress. 1830 Up in dining room most of day, conversive at times, participating in groups. No s/o distress. Requesting stool softner with evening meds.
[2019-06-19 01:43] VITALS: BP 133/68
--- NOTE | 2019-06-19 02:07 | NUR ---
1999 Pt. assessment done. No problems noted and patient voices no complaints or concerns and denies pain. Assisted patient getting ready for bed and to prepare to sleep. Pt. is up ad rosendo with walker during day per report and is standby assist with walker and urinal at night to void. Pt. took hs meds whole and without difficulty. Patient has valerio within reach and bed is in low and locked position.
--- NOTE | 2019-06-19 04:32 | NUR ---
2400 Pt. up to void with urinal and stand-by assist and walker. Pt. voiced no complaints or concerns.
--- NOTE | 2019-06-19 04:34 | NUR ---
0330 Pt. up to void with walker and urinal with stand-by assist with CA. Pt. voiced no concerns or complaints.
--- NOTE | 2019-06-19 06:45 | NUR ---
Pt. up to void using urinal and walker with 1 person stand-by assist. Voices no concerns or complaints. No distress noted.
[2019-06-19 07:30] VITALS: BP 112/65
[2019-06-19 09:16] VITALS: BP 112/65
--- NOTE | 2019-06-19 12:32 | NUR ---
ASSUMED CARE AT 0700 THIS MORNING. PT. IN HIS BEDRROM. STORE ASSOCIATE'S GOT HIM UP AND DRESSED. HE CAME ONTO THE UNIT FOR MEALS. TOOK HIS MEDICATION WITHOUT DIFFICULTY. AFFECT SOBER.
--- NOTE | 2019-06-19 17:53 | NUR ---
LISSETTE and psych doctor contacted Shan. No answer. Lft msg to return call to psych doc. LISSETTE team will continue to follow pt during his stay on this unit.
[2019-06-19 21:07] VITALS: BP 114/64
--- NOTE | 2019-06-20 05:43 | NUR ---
Assumed pt care @1915. pt a&ox4 but can be confused. pt had a bowel mov't overnight. able to use te urinal at bedside with some assistance and a walker. no issues overnight. pt slept a total of 10.2hrs
[2019-06-20 09:18] VITALS: BP 143/71
--- NOTE | 2019-06-20 14:29 | NUR ---
0715 ASSUMED CARE OF PATIENT ON 06/20/19. 0800 PATIENT SITTING AT TABLE FOR BREAKFAST DENIES NEEDS AT THIS TIME. 0900 NO COMPLAINTS OF PAIN, NO SI/HI AND AVH. MEDS TAKEN WITHOUT DIFFCULTY. LUNG SOUNDS CLEAR. AMB TO BEDRROM WITH USE OF WALKER FOR USE OF URNAL. VOIDED X1 YELLOW URINE NOTED. BACK TO DAYROOM USING WALKER WITHOUT DIFFICULTY. STANDBY ASSIST WHILE AMBULATING STEADY GAIT NOTED.
[2019-06-20 19:48] VITALS: BP 105/56
--- NOTE | 2019-06-21 04:15 | NUR ---
Assessments completed. pt a&ox4. no changes overnight. pt slept almost all the night. denies pain. cooperative with care and meds. denies si/hi. no s/s of distress. will cont to monitor
[2019-06-21 09:20] VITALS: BP 139/83
[2019-06-21 09:25] VITALS: BP 139/83
--- NOTE | 2019-06-21 09:40 | NUR ---
ASSUMED CARE AT 0700 THIS MORNING. PT. AWAKE, ALERT AND COOPERATIVE WITH STAFF. HE IS SMILING, AND CHEERFUL TODAY. TALKED TO HIM ABOUT PUTTING THE NYSTATIN ON HIS BOTTOM. HE STATED WHEN HE WENT TO HIS ROOM TO UTILIZE THE RESTROOM, HE WOULD DO SO. NO PROBLEMS NOTED FROM HIM THIS MORNING. TOOK HIS MEDICATIONS WITHOUT DIFFICULTIES NOTED. AMBULATES WITH A WALKER. HE IS STEADY ON HIS FEET. BLOOD SUGAR 97 THIS MORNING. HE DID NOT REQUIRE INSULIN. ATE ON THE UNIT. ASKING ABOUT THE TIME THE SUPER BOWL STARTS TODAY AND THE PREGAME.
[2019-06-21 20:00] VITALS: BP 132/72
[2019-06-22] VITALS: BP 139/83
--- NOTE | 2019-06-22 02:27 | NUR ---
PT CARE ASSUMED AT 1900 WITH PT IN THE ACTIVITY ROOM WITH OTHER WATCHING THE [email or web address] GAMES.PT IS A/O X4.PT APPEARED TO BE IN NO DISTRESS.PT LATER WAS ASSISTED TO BED BY STAFF AND REMAIN IN BED THROUGHOUT SHIFT.WILL CONTINUE TO MONITOR
[2019-06-22 07:47] VITALS: BP 127/71
[2019-06-22 09:05] VITALS: BP 127/71
--- NOTE | 2019-06-22 10:32 | NUR ---
0645 RESUMMED CARE FROM OVERNIGHT SHIFT, PATIENT SITTING IN DAY ROOM QUIET COOPERATIVE. PATIET ATE BREAKFST AND TOOK MEDICATION WITHOUT INCIDENCE. PATIENT HAS PARTICIPATED IN GROUPS, MINIMAL INTERACTION WITH SOME PATIENTS. WILL CONTINUE TO MONIOR FOR SAFETY AND BEHAVIORS.
--- NOTE | 2019-06-22 11:10 | NUR ---
Pt is due to d/c on 06/23 @1400 and the psych doctor wanted a family meeting scheduled that same morning. LISSETTE contacted Jamila Sanders, and Uli via email and asked if they can be available to have a family meeting via phone on 06/23. SW team will continue to follow pt during his stay on this unit.
[2019-06-22 20:37] VITALS: BP 132/75
--- NOTE | 2019-06-23 00:32 | NUR ---
ASSUMED CARE ON 06/22/19 @ 19:15, PATIENT GOING TO ROOM, USES WALKER TO AMBULATE. FSBS 91, TOOK MEDS WHOLE WITH WATER, USES URINAL, NEEDS HELP HOLDING THE URINAL WHILE HE HOLDS HIS WALKER TO STAND. NO AGRESSIVE BEHAVIOR NOTED TODAY. BED IN LOW POSITION, BED ALARM SET, WILL CONTINUE TO MONITOR FOR PATIENT SAFETY.
[2019-06-23 02:13] VITALS: BP 132/75
--- NOTE | 2019-06-23 05:55 | NUR ---
SLEPT 9.8 HOURS
[2019-06-23 09:40] VITALS: BP 154/84
[2019-06-23] MEDS ORDERED: ZOLOFT 50 MG TA50 M1 PO (11:06)
[2019-06-23] MEDS ORDERED: TRADJENTA5 MG PO (11:07)
[2019-06-23] MEDS ORDERED: MELATONIN5 M1 PO (11:07)
[2019-06-23] MEDS ORDERED: B-12500 MCG PO (11:07)
--- NOTE | 2019-06-23 14:22 | NUR ---
PT DISCHARGED ACCOMPNIED BY SON,DAUGHTER AND AT APPROX 1350. EXITS UNIT VIA WC-PERSONAL BELONGINGS SENT VIA CART-UP IN MOOD AT TIME OF DC-DENIES SI/SH/HI. NO ACUTE ANXIETY OR PSYCHOSIS NOTED OR REPORTED. DESCRIBES MOOD "GOOD- I GET TO GET OUT OF HERE" REPORT CALLED TO [facility],DC PAPERWORK REVIEWED WITH PT,SON AND DAUGHTER-THEY DENY QUESTIONS OR CONCERNS. DC PAPERWORK AND EVAL SENT WITH FAMILY FOR SNF.
--- NOTE | 2019-06-23 16:32 | NUR ---
LISSETTE D/C note SW and psych doctor met with pt's family Shan (DPOA), Jamila (daughter), and Angela () for a final family/discharge meeting. LISSETTE was told that pt's graphic arts technician will be coming also to talk with pt about financial DPOA. When pts graphic arts technician came SW attended meeting. Pt's graphic arts technician asked him who he wanted in the room and he decided he wanted to meet wiht his graphic arts technician alone. After 30 min LISSETTE checked on pt and graphic arts technician and saw pt's was also now in the meeting. The blood donor unit assistant faxed pt's discharge docs to petar Ramírez and then submitted same documents to pt's file. No other needs for SW team to address at this time.
== END 2019-06-23 13:50 | DRG 57 ==
LOC: ER 10:10 → SBH 13:32 → EROBS 13:32 → SBH 14:49
PROVIDERS: Emergency Medicine; Hospitalist; ADMIT Psychiatry & Neurology Psychiatry
DX: G30.9 Alzheimer's disease, unspecified (principal); F01.51 Vascular dementia, unspecified severity, with behavioral disturbance; F02.81 Dementia in other diseases classified elsewhere, unspecified severity, with behavioral disturbance; J98.11 Atelectasis; F22 Delusional disorders; E78.5 Hyperlipidemia, unspecified; E11.9 Type 2 diabetes mellitus without complications; I10 Essential (primary) hypertension; Z79.82 Long term (current) use of aspirin; Z79.899 Other long term (current) drug therapy
CPT/HCPCS: 10880

== ENCOUNTER 2020-06-09 14:20 | Inpatient (IN) | payer OTHER, BC ==
[~2020-06-09] VITALS: Ht 177.8 cm; Wt 76.2 kg
[~2020-06-09 14:20] MED LIST: ARICEPT10 M1 PO; ASA81BEC PO; AVAPRO300 MG PO; B-12500 MCG PO; JANUVIA100 MG PO; KLOR-CON M2020 MEQ PO; MELATONIN5 M1 PO; OCUVITE TABLET1 EAC1 PO; PRAVACHOL 20 MG20 M1 PO; SPIRONOLACTONE25 MG PO; TRADJENTA5 MG PO; VITAMIN D310000 UNIT PO; ZOLOFT 50 MG TA50 M1 PO; ZOLOFT100 MG PO
[2020-06-10] MEDS ORDERED: SENNA PLUS TAB1 EACH PO (06:00)
[2020-06-10] MEDS ORDERED: GAS RELIEF80 MG PO (06:03)
[2020-06-10] MEDS ORDERED: FLOMAX0.4 MG PO (06:04)
[2020-06-10] MEDS ORDERED: CALCIUM CARBON500 MG PO (06:05)
[2020-06-10] MEDS ORDERED: ZOFRAN4 MG PO (06:06)
[2020-06-10] MEDS ORDERED: VALPROIC ACID250 MG PO (06:06)
[2020-06-10 06:08] VITALS: BP 126/77
--- NOTE | 2020-06-10 06:32 | NUR ---
Pt admitted to unit from ED @ 0550 via [employer]. Pt oriented to name only. Non-ambulatory. Pt has multiple bruising on hands bilaterally et legs bilaterally allegedly from falls. ED reported that pt has been aggressive throughout the noc but pt has not demonstrated aggressive behavior since entering the unit. Denies SI/HI/AVH at present time. Orders obtained from physician international nurse. Hospitalist RUBIN international nurse saw pt in ED prior to transfer. DPOA was notified of admission to unit et gave consent to treat. Pt currently resting in gerichair in dayroom with eyes open. Will continue to monitor per unit protocol.
[2020-06-10 08:00] VITALS: BP 133/83
--- NOTE | 2020-06-10 08:15 | NUR ---
ASSISTED PT TO BATHROOM, PT SITTING ON TOILET ATTEMPTED TO PUT GAIT BELT AROUND PT AND PT GRABBING GAIT BELT AND ALSO THIS HAND SHOE CUTTER NAME TAG. PT WAS NOT FOLLOWING DIRECTIONS TO LET GO OF ID BADGE AND GAIT BELT. CALLED SECURITY AND BY TIME SECURITY CAME, HE WAS IN [facility]. LAB WAS HERE TO DRAW BLOOD, SECURITY STANDING BY WITH BLOOD DRAW.
--- NOTE | 2020-06-10 09:26 | NUR ---
PT SITTING IN DINING ROOM AND NEEDING ASSISTANCE WITH FEEDING. PT TOOK MEDS WHOLE WITH THIN WATER. NOTICED PT CHEWING ON PILLS. PT HAS SKIN TEARS TO RT AND LEFT TOP OF HANDS. PT HAS LAP AIDA FOR PROTECTION. PT DENIES ANY PAIN. PT LUNGS CLEAR.
[2020-06-10 10:01] VITALS: BP 133/83
[2020-06-10 15:05] VITALS: BP 132/70
--- NOTE | 2020-06-10 15:05 | NUR ---
PT WAS FOUND IN DINING ROOM ON FLOOR BY MARK CHAIR. PT TOOK OFF LAP AIDA ON OWN. PT DIDN'T SUSTAIN ANY INJURY, PT ORIENTED TO SELF ONLY. DR. CRAVEN NOTIFIED OF FALL. VITAL SIGNS OBTAINED AND WAS IN NORMAL RANGE. PT DENIED ANY PAIN.
[2020-06-10 16:05] VITALS: BP 130/71
--- NOTE | 2020-06-10 17:39 | NUR ---
PT ATE HIS BURGER FOR DINNER. PT TAKING OFF LAP AIDA AND WANTING TO GET UP. PT GRABBING AT STAFF AND WANTING TO WALK. PT IS ON 1:1 CARE SINCE 1500.
--- NOTE | 2020-06-10 17:48 | NUR ---
PT WAS AGITATED AND TRYING TO GET OUT OF CHAIR, PT CONFUSED AND UNSTEADY ON FEET. PT WAS PUSHING TABLE AND LIFTING UP HALF OFF GROUND. CALLED DR. CRAVEN FOR PRN ORDERS FOR AGITATION. ORDERS WAS OBTAINED FOR OLAZIPINE 5MG SL. GAVE MED CRUSHED IN RASPBERRY SHERBERT. PT TOOK MEDS WITHOUT ANY ISSUES.
--- NOTE | 2020-06-10 18:15 | NUR ---
PT CALMER AT THIS TIME AFTER MEDICATION. PT ASKING ABOUT IF THERE WAS A FOOTBALL GAME ON TODAY.
[2020-06-10 20:35] VITALS: BP 109/58
--- NOTE | 2020-06-11 01:59 | NUR ---
Assumed care of pt at 1900. Pt sitting in gerichair in dining room with 1:1 sitter at start of this shift. Pt restless and irritable at times. Takes medicaitons crushed with yogurt; takes but does attempt to spit out some of yogurt. Pt compliant with nursing assessment. Pt is incontinent. Assisted with pericares as needed and transferring from margaret chair to bed. Once in bed, pt has been lying down resting quietly with eyes closed and appears to be sleeping. Pt is an assist x 2 with transfers. Pt is a high fall risk. Pt has fall risk protocol in place. Will continue to monitor for changes in mood/behavior and for safety per hospital/unit protocol.
[2020-06-11 08:26] VITALS: BP 177/105
[2020-06-11 09:40] VITALS: BP 177/105
--- NOTE | 2020-06-11 19:15 | NUR ---
Assumed pt care at 0700. Pt was sleeping in the day room. pt slept most part of day, but he was arousable. pt took his medication crushed without difficulties. assessment completed and vss. Pt is a 2 person assist. Pt daughter called to check on pt. pT was calm and co-operative with care today. pt had a diarrhea after lunch. pt WAS UNDER CONSTANT SUPERVISION BECAUSE HE IS A 1:1. THERE WERE NO SIGNS OF SI/HI NOTED, NO SIGNS OF PAIN. Will continue to MONITOR pt.
[2020-06-11 19:29] VITALS: BP 165/106
--- NOTE | 2020-06-12 03:39 | NUR ---
Assumed care of patient this pm shift. Patient mostly calm but calls out occasionally that he has to urinate. When a urinal is put to patients araceli area he only dribbles a small amout. It appears as though there is urgency. Patient is alert and oriented to self only. Takes medications crushed in yogurt. Blunted affect. Patient is considered a falls risk, falls precautions in place. Assessment shows no signs of acute distress. One to one is with patient this pm shift as he wiggles alot trying to move to the end of the bed and has previously fallen. Urine specimen clean catch sent to the labratory for processing. We will continue to monitor per hospital policy.
[2020-06-12 03:58] LABS: URINE BILIRUBIN NEGATIVE (Negative); URINE BLOOD TRACE (Negative); URINE CLARITY SL CLOUDY; URINE COLOR YELLOW; URINE GLUCOSE-RANDOM* NEGATIVE (Negative); URINE KETONES NEGATIVE (Negative); URINE NITRITE-REFLEX NEGATIVE (Negative); URINE PROTEIN (DIPSTICK) 1+ (Negative)
[2020-06-12 04:10] LABS: URINE LEUKOCYTES-REFLEX 3+ (Negative)
[2020-06-12 04:13] LABS: BACTERIA-REFLEX 1-9 Few /HPF (None Seen); CASTS None Seen /LPF (None Seen); CRYSTALS None Seen /LPF (None Seen); MUCUS 0-3 Light strn/LPF (None Seen); SQUAMOUS None Seen /LPF (0-3); URINE RBC 0-2 Rare /HPF (0-2); URINE WBC-REFLEX >25 Many /HPF (0-5)
[2020-06-12 08:14] VITALS: BP 100/56
[2020-06-12 08:30] VITALS: BP 100/56
--- NOTE | 2020-06-12 08:50 | NUR ---
PT FINISHED EATING BREAKFAST AND YELLING HE NEEDED TO USE THE BATHROOM. PT TAKEN INTO ROOM AND PT WAS SITTING ON BSC. PT INCON OF LOOSE STOOL. PT ABLE TO STAND WITH WIPING AND PROTECTIVE CREAM WAS APPLIED. PT TRANSFERED BACK TO MARK CHAIR AND ATTEMPTED TO GIVE MEDS CRUSHED IN YOGART. PT STATED HE DIDN'T NEED THAT AND REFUSED TO TAKE MEDICATION.
--- NOTE | 2020-06-12 12:19 | NUR ---
PT WAS GETTING RESTLESS IN DINING ROOM. PT YELLING AT PEOPLE TO WAKE UP AND HELP HIM. PT WANTS LAB AIDA OFF TO GET OUT OF HER AND DRIVE. PT SLIPPED OUT OF LAP AIDA AND SAT ON FLOOR IN FRONT OF CHAIR. PT ASSISTED BACK TO MARK CHAIR AND PLACED LAP AIDA BACK AROUND PT. PT SITTING FOR LUNCH. PT TOOK 1300 OLANZIPINE WITH PUDDING. PT WANTED ANOTHER POP, WE GIVE SIRRA MIST. PT GIVEN ANTIBIOTIC AND SPIT THEM OUT. HAD TO LIGHTLY BREAK UP ANTIBIOTIC AND AND PUT IN PUDDING. PT TOOK WITHOUT ANY ISSUES.
--- NOTE | 2020-06-12 12:33 | NUR ---
LISSETTE completed assessment and tx plan. LISSETTE also faxed updates to [facility]. SW team will continue to follow.
--- NOTE | 2020-06-12 13:00 | NUR ---
PT RESTING AT THIS TIME IN CHAIR WITH EYES CLOSED.
--- NOTE | 2020-06-12 16:30 | NUR ---
PT ALLOWED THIS APICULTURIST TO PUT NEW DRESSINGS ON RT/LEFT HAND AND LEFT ELBOW. PT SAID OUCH WHEN OLD DRESSING COMING OFF. PT HAS 1:1 CARE TODAY FOR SAFETY.
--- NOTE | 2020-06-12 16:32 | NUR ---
PT GETTING AGITATED AND YELLING THAT HE HAS A BED FOR THE BABY. PT HITTING, GRABBING, AND KICKING STAFF. SECURITY CALLED TO ASSIST GETTING PT UNDER CONTROL. ADM OLANZIPINE 5MG PO FOR AGITATION. CRUSHED AND PUT IN PUDDING.
--- NOTE | 2020-06-12 19:08 | NUR ---
PT YELLING AT THIS TIME FOR SOMEONE TO HELP. HE WANTS TO LEAVE HERE AND DRIVE HIS CAR. HAVE TO REDIRECT PT THAT HE IS STAYING FOR ANTIBIOTICS.
[2020-06-12 19:24] VITALS: BP 135/65
[2020-06-13 03:43] VITALS: BP 135/65
--- NOTE | 2020-06-13 06:01 | NUR ---
Assumed care of pt at 1900. Pt resting in bed at start of shift. Pt has 1:1 sitter while awake. Pt is impulsive and can be restless and combative at times; yells out. Pt started on Ceflin 500 mg BID x 6 days on 06/12/20 for UTI. Pt is A&O x 1. Pt takes medications crushed in applesauce. Pt denies pain. Pt is incontient and needs assistance with pericare. Pt is transfer assist x 2. Pt is resistant to staff assisting with changing clothes and other ADLs. Cussing at staff and argumentative. Pt had PRN Olanzipine 5 mg po at 0242. Pt wanting to remain in bed this morning stating he is cold. Daughter called last night for update. Will continue to monitor for any changes in mood/behaviors and for safety.
[2020-06-13 09:00] VITALS: BP 90/53
[2020-06-13 09:46] VITALS: BP 105/68
--- NOTE | 2020-06-13 10:54 | NUR ---
1100 RESUMMED CARE FROM OVERNIGHT SHIFT THIS AM, PATIENT IN ROOM ASLEEP. PATIENT TOOK MEDICATION IN APPLESAUCE CRUSHED, PATIENT WAS ALLOWED TO REST UNTIL ABOUT 9:45 HE THEN ATE BREAKFAST AND IS DAY ROOM SITTING QUIET. PATIENT IS ORIENTED TO SELF DID NOT KNOW YEAR,DAY OR WHAT HOSIPITAL. PATIENTS ABDOMEN SOFT ROUND BOWEL SOUNDS LUNGS CLEAR. PATIENT DENIES SI/HI/AH/VH AT PRESENT PATIENT CALM COOPERATIVE WILL CONTINUE TO MONITOR PATIENT FOR SAFETY AND BEHAVIORS.
[2020-06-13 16:37] VITALS: BP 105/78
[2020-06-13 19:13] VITALS: BP 117/62
--- NOTE | 2020-06-14 04:24 | NUR ---
Assumed care for pt at 1900. Pt sitting in dining room in gerichair with lab elizabeth in place. Pt remains a 1:1 for safety. Pt is aggitated and observed yelling out and grabbing towards staff. Pt also observed hollering out the name Marilyn repeatedly. Pt is difficult to redirect. Pt attempting to slide out of gerichair under the lap elizabeth. Pt resistive to taking medications. Takes crushed. Pt spit out meds at this nurse. Pt is incontinent at times and has been assisted with changing and araceli care. Pt has reddened areas in groin area that appears to be moisture related. Pt denies pain. Pt had prn medications per orders for aggitation and agression. Will continue to monitor for changes in behavior and for safety per hospital protocol.
[2020-06-14 11:07] VITALS: BP 107/63
--- NOTE | 2020-06-14 13:12 | NUR ---
Assumed pt care at 0700. pt was oriented to self. Assessment are completed and vss. pt was calm and co-operative with his medication and care. BALL WORKER gave pt a bed bath. pt ATE BOTH BREAKFAST AND LUNCH. PT IS CONFUSED, THERE ARE NO SIGNS OF SI/HI. there is no signs of pain and distress. pt was pleasant all morning and during lunch. pt took medication whole without difficulty. at this time patient is getting irritable, pt keeps trying to get out of his chair. will continue to monitor.
[2020-06-14 19:59] VITALS: BP 94/67
[2020-06-14 20:30] VITALS: BP 94/67
--- NOTE | 2020-06-15 02:55 | NUR ---
PATIENT WAS UP IN MARK CHAIR TONIGHT AND 1:1 WHILE AWAKE. PATIENT HAD ICECREAM FOR HS SNACK. PATIENT TALKED ALOT TONIGHT AND WAS SLIGHTLY AGITATED BEFORE BED. HE HAS HAD MULTIPLE PRN'S PLUS A GEODON 10MG INJECTION RIGHT BEFORE I CAME ON SHIFT. PATIENT WAS ASSISTED TO BED X 2 ASSIST WHEN PT STARTED DOZING IN MARK CHAIR IN DINING ROOM. PATIENT USED URINAL BEFORE GOING TO BED. HE IS RESTING WITH EYES CLOSED AT THIS TIME. PATIENT DENIED PAIN/SI/HI. NO AVH NOTED. BED IN LOW POSITION AND BED ALARM ON. ROUTINE ROUNDS TO ASSESS SAFETY AND STATUS OF PATIENT. CLEANED AND APPLIED BARRIER CREAM TO GROIN AREA AND SCROTUM D/T REDNESS WITH RASH.
[2020-06-15 08:23] VITALS: BP 137/67
[2020-06-15 08:59] LABS: HEMATOCRIT 39.8 % (42.0-52.0); HEMOGLOBIN 12.7 gm/dL (14.0-18.0); MCH 30.3 pg (26.0-34.0); MCV 94.6 fL (80.0-100.0); RBC 4.21 mil/uL (4.50-6.00); RDW 16.5 % (10.5-14.5); WBC 6.5 thou/uL (4.0-11.0)
[2020-06-15 09:17] LABS: ALBUMIN 2.9 g/dL (3.4-5.0); CALCIUM 9.4 mg/dL (8.5-10.1); CREATININE 0.9 mg/dL (0.7-1.3); POTASSIUM 3.7 mmol/L (3.5-5.1); TOTAL BILIRUBIN 0.4 mg/dL (0.2-1.0); TOTAL PROTEIN 7.2 g/dL (6.4-8.2)
--- NOTE | 2020-06-15 11:19 | NUR ---
Nutrition: Received consult for pt on [facility] unit stating " low albumin". Pt admit with dementia with aggressive behaviors, neurocognitive disease. PMH: DM, HTN, HLD, CVA. Meds include spironolactone, calcium carbonate. Eating 100% of most all meals with occasional refusal. Pt unable to relay UBW but reports stable. Suspect current wt of 168# is error. Prior weights ~220#. No BG being taken. Pt was grouchy during visit but reports no questions/issues related to meals. Albumin is acute phase protein and not indicator of nutrition status. No malnutrition identified. Low nutrition risk.
--- NOTE | 2020-06-15 11:31 | NUR ---
PATIENT WAS IN BED SLEEP WHEN CARE ASSUMED, WAS ASSISTED UP FOR BREAKFAST WITH ASSIST OF TWO STAFF. PATIENT CONSUMED 100% MEAL, TOOK ALL MEDICATIONS WHOLE IN PUDDING WITHOUT DIFFICULTY. PATIENT REMAIN CALM, UNTILL ABOUT 1100AM, PATIENT BECAME VERY AGITATED, IRRITABLE, ATTEMPTING TO HIT, AND KICK STAFF. "I WANT OUT HERE, I HAVE TO GO". YELLING FOR "VINNIE", BECAME VERY DIFFICULT TO VERBALLY REDIRECT, PRN OLANZAPINE/BENADRYL GIVEN, WILL MONITOR EFFECTIVENESS. AFFECT IS FLAT, MOOD IS SAD/ANGRY. NO SIGN OF ACUTE DISTRESS NOTED AT THIS TIME, WILL CONTINUE TO REDIRECT, AND MONITOR FOR SAFETY.
--- NOTE | 2020-06-15 15:29 | NUR ---
VETERINARY MEDICINE SCIENTIST sat with pt 1;[address] of recreation therapy group, as he was unable to participate. 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 Pts mood brightened and he spoke in a professional tone when speaking about work. This could be used as an intervention when pt begins to become agitated.
[2020-06-15 19:40] VITALS: BP 91/62
--- NOTE | 2020-06-16 05:02 | NUR ---
Assumed plan of care for patient at 1900. Pt sitting in chair in dining room when care taken over for pt. Pt observed having on no pants or briefs. Pt was assisted to get brief and clothing on. Pt calm and cooperative. Pts son called and spoke with pt this evening. Pt took medications crushed with applesauce. Pt reports liking the applesauce. Pt is A&Ox1. Pt is 2 person assist with transfers. Pt is incontinent of bowel and bladder. Pt had medium BM this shift. Pt c/o it hurting when urinating. Pt has had recent UTI. Pt will call out at times Marilyn. Pt is high fall risk and has a 1:1 sitter while awake. Pt has high fall risk protocol in place. Will continue to monitor for safety and changes in mood/behavior per unit and hospital policy.
[2020-06-16 08:49] VITALS: BP 170/82
[2020-06-16 11:08] VITALS: BP 170/85
--- NOTE | 2020-06-16 12:11 | NUR ---
1211 RESUMMED CARE FROM OVERNIGHT SHIFT THIS AM, PATIENT IN DAY ROOM RESTING QUIET IN DAY ROOM. PATIENT ORIENTED TO SELF PATIENT DOES NOT KNOW WHAT HOSPITAL HE IS IN OR DATE. PATIENT CALM COOPERATIVE ATE BREAKFAST TOOK MEDICATION CRUSHED. PATIENTS ADOMNEN SOFT ROUND BOWEL SOUNDS PRESENT LUNGS CLEAR. PATIENT UNABLE TO VERBALIZE SI/HI/AH/VH AT PRESENT DUE TO COGNITIVE DO. WILL CONTINUE TO MONITOR PATIENT FOR SAFETY AND BEHAVIORS.
[2020-06-16 19:47] VITALS: BP 97/48
--- NOTE | 2020-06-17 05:30 | NUR ---
Assumed care of pt @ 1900. Pt calm et cooperative most of shift. Took medications crushed in pudding without difficulty. Ambulates with assistance of gerichair. VSWNL. Health assessment with no abnormalities noted at present time. Unable to assess SI/HI/AVH due to cognitive deficit but pt does not demonstrate any signs or symptoms of acute emotional distress at present time. Currently resting in bed with eyes closed. Will continue to monitor per unit protocol.
[2020-06-17 08:34] VITALS: BP 114/54
[2020-06-17 09:13] VITALS: BP 114/54
[2020-06-17 12:10] VITALS: BP 114/59
--- NOTE | 2020-06-17 12:31 | NUR ---
LISSETTE received updated in tx team that pt was ready for d/c as early as next Saturday. LISSETTE contacted [facility] and spoke to Jen about pt discharging next week. Jen said she is unsure if pt can return due to his behaviors. LISSETTE explained that when pt was accepted assurance was given that pt can return. Jen said she will need to provide an update to her team and ask if they think pt can return. She will let LISSETTE know. LISSETTE provided an update to [facility] director. LISSETTE contacted Jamila and provided update. Jamila advised she would rather pt go back to [place] of instead; he is familiar with his surroundings there. She gave LISSETTE Bansal as his contact. and work [phone]. LISSETTE team will continue to follow pt during his stay on this unit. LISSETTE
[2020-06-17 12:53] LABS: URINE BILIRUBIN NEGATIVE (Negative); URINE BLOOD 1+ (Negative); URINE CLARITY SL CLOUDY; URINE COLOR YELLOW; URINE GLUCOSE-RANDOM* NEGATIVE (Negative); URINE KETONES NEGATIVE (Negative); URINE LEUKOCYTES 3+ (Negative); URINE NITRITE POSITIVE (Negative); URINE PROTEIN (DIPSTICK) TRACE (Negative); URINE SPECIFIC GRAVITY 1.015 (1.005-1.035); URINE UROBILINOGEN 0.2 E.U./dl (0.2-1.0)
[2020-06-17 13:21] LABS: CASTS None Seen /LPF (None Seen); SQUAMOUS None Seen /LPF (0-3)
[2020-06-17 13:22] LABS: BACTERIA 1-9 Few /HPF (None Seen); CRYSTALS None Seen /LPF (None Seen); URINE RBC 0-2 Rare /HPF (0-2); URINE WBC >25 Many /HPF (0-5)
--- NOTE | 2020-06-17 14:28 | NUR ---
1430 RESUMMED CARE FROM OVERNIGHT SHIFT THIS AM, PATIENT IN DAY ROOM QUIET. PATIENT ATE BREAKFAST TOOK MEDICATION WITHOUT INCIDENCE CRUSHED IN APPLESAUCE. PATIENT ORIENTED TO SELF AND PLACE PATIENT HAS CONFUSION AND IS SOMETIMES FORGETFUL. PATIENT CALM COOPERATIVE HAS NOT DISPLAYED ANY AGGRESSION TODAY. PATIENTS ABDOMEN SOFT ROUND BOWEL SOUNDS PRESENT LUNGS CLEAR PATIENT DENIES SI/HI/AH/VH AT PRESENT. PATIENT TALKED WITH DAUGHTER ON THE PHONE AND WAS CONVERSING WELL WITH DAUGHTER. WILL CONTINUE TO MONITOR PATIENT FOR SAFETY AND BEHAVIORS.
--- NOTE | 2020-06-17 15:47 | NUR ---
RT Progress Note- German's participation with RT staff remains mostly 1;1 as he is unable to maintain focus in structured groups. 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 DROP FORGER will continue to visit German 1;1 and eventually encourage participation in structured settings.
[2020-06-17 19:23] VITALS: BP 120/66
[2020-06-17 22:22] VITALS: BP 121/59
--- NOTE | 2020-06-17 22:43 | NUR ---
At approximately 2032, pt was found on floor of dayroom lying on right side next to the gerichair that he had been sitting in at the table. Pt states, "I fell". Assessed pt's head for injury et then left him briefly to go et get help to lift him from the floor. When assistance arrived, questioned pt further as to how he fell et pt stated that he was "going to turn the light off" when he "toppled over". Pt oriented to self only but lucid enough to give answers to questions. Pt was assisted back into [facility] et further assessed for injuries. Several prior bruises et skin tears but nothing new noted at this time. Vital signs obtained. Pt secured in [facility] with cierra johnson. Provider financial reporting consultant notified at 2114. Left message for daughter to call unit to inform at 2144 but have not received a response as of this writing. Post fall intervention done. Will continue to monitor per protocol.
[2020-06-17 23:11] VITALS: BP 158/78
--- NOTE | 2020-06-18 04:10 | NUR ---
Assumed care of pt @ 1899. Pt anxious et agitated most of shift. Took medications crushed in pudding with moderate prompting. Ambulates via assistance of teddy. VERONICA. Health assessment with no abnormalities noted this shift. Unable to assess SI/HI/AVH due to cognitive deficit but does not demonstrate any signs or symptoms of acute emotional distress at present time. Pt had fall @ 2032 this shift in dayroom. Please see prior note for details. Pt was given PRN Haldol 5mg PO et Benadryl 25mg PO @ 1950 for agitation as he would not stay seated in his chair et kept sliding to the floor et attempting to hit staff et grab staff. Pt continued attempting to hit at staff et would not stay in place whether in chair or on couch. Pt cursing et threatening staff. STILL CLEANER specialist employee labor relations was informed et order obtained for Geodon 20mg IM X1 that was administered to left deltoid. Pt was assisted to bed et rested quietly for a couple of hours before attempting to hit staff when assisting with brief change. Pt stated that he was having pain 8/10 on pain scale et was given Tylenol 650mg PO PRN. Pt rested quietly for a couple of hours et then proceeded to dig feces out of his rectum et throw it on the floor. He then wiped his hands on his pillowcase et the bed. When staff attempted to clean him up, he again became combative, cursing et hitting staff. PRN Haldol 5mg IM et PRN Benadryl 25mg IM administered to left dorsogluteal muscle. At present time, pt continues to attempt to get out of his bed et continues to attempt to fight with staff. Pt has gotten no relief from his agitation thus far from the PRNs. Will continue to monitor per unit protocol. 1:1 remains at his bedside.
[2020-06-18 08:34] VITALS: BP 96/55
--- NOTE | 2020-06-18 14:26 | NUR ---
Assumed pt care at 0700. pt was in his room resting. PT was oriented to self. pt was calm and co-operative with care and medication administration. pt took medication whole without difficulties. pt took his medication crushed with apple sauce. Assessment completed, VSS. pt is confused due to dementia. There was no sign of SI/HI noted. there is no sign or c/o of pain at this time. pt was irritable after breakfast, but pt was redirected. Pt spoke to his daughter over the phone. Pt son called to check up on his father and also to get an update. At this time no PRNs given. Will continue to monitor pt.
[2020-06-18 19:24] VITALS: BP 89/61
--- NOTE | 2020-06-19 05:56 | NUR ---
Assumed care of pt @ 1900. Pt calm et cooperative most of shift. Took medications crushed in ice cream without difficulty. Ambulates with assistance of gerichair. VSWNL. Health assessment with no abnormalities noted this shift. Unable to assess SI/HI/AVH due to cognitive deficit but pt does not demonstrate any signs or symptoms of acute emotional distress at present time. Pt had several loose stools this shift resulting in redness on groin et buttocks. Z guard cream applied for relief. Currently resting in [facility] in dayroom with eyes open. Will continue to monitor per unit protocol.
[2020-06-19 08:14] VITALS: BP 153/96
[2020-06-19 09:56] VITALS: BP 153/96
--- NOTE | 2020-06-19 10:59 | NUR ---
1050 RESUMMED CARE FROM OVERNIGHT SHIFT THIS AM, PATIENT IN DAY ROOM IN MARK CHAIR. PATIENT ATE BREAKFAST TOOK MEDICATION CRUSHED IN APPLESAUCE. AFTER EATING BREAKFAST PATIENT WAS TRYING TO TAKE CLOTHES OFF IN DAY ROOM HITTING AT STAFF. PATIENT ALERT ORIENTED TO SELF NOT ABLE TO TELL ME ABOUT SI/HI/AH/VH AT PRESENT DUE TO COGNITIVE DO. PATIENTS ABDOMEN SOFT BOWEL SOUNDS PRESENT LUNGS CLEAR. PATIENT LEFT BIG TOE IS PURPLE AND DR RBINK LOOKED AT TOE AND IT LOOKS LIKE PT STUBBED TOE. IT IS NOT BROKEN PATIENT HAS LOTS OF SKIN TEARS AND BRUISING ON LEGS AND BOTH ARMS ELBOWS. WILL CONTINUE TO MONITOR PATIENT FOR SAFETY AND BEHAVIORS.
--- NOTE | 2020-06-20 04:26 | NUR ---
Assumed care of patient this pm shift. Patient happy, talks to self. Calm and cooperative. Patient has a one to one while awake. Alert and oriented to self only. Takes medications crushed in applesauce. Is considered a falls risk. Yellow shirt. Ambulates via wheel chair. Does not appear to have pain. Does not appear to have hi/si. Assessment shows no signs of acute distress. We will continue to monitor per hospital policy.
[2020-06-20 06:21] LABS: ALBUMIN 2.9 g/dL (3.4-5.0); DIRECT BILIRUBIN < 0.1 mg/dL (<0.1-0.2); SGOT 16 U/L (15-37); SGPT 17 U/L (30-65); TOTAL BILIRUBIN 0.3 mg/dL (0.2-1.0); TOTAL PROTEIN 7.1 g/dL (6.4-8.2)
[2020-06-20 09:43] VITALS: BP 139/82
[2020-06-20 11:39] VITALS: BP 139/82
--- NOTE | 2020-06-20 14:18 | NUR ---
1418 RESUMMED CARE FROM OVERNIGHT SHIFT THIS AM, PATIENT IN MARK CHAIR IN DAY ROOM. PATIENT ATE BREAKFAST TOOK MEDICATION CRUSHED IN APPLESAUCE. PATIENT ORIENTED TO SELF AND KNOWS HE IS IN A HOSPITAL BUT DOES NOT REMEMBER THE NAME. PATIENTS ABDOMEN SOFT BOWEL SOUNDS PRESENT LUNGS CLEAR, PATIENT IS ON AN ANTIBIOTICS FOR UTI. PATIENTS ABDOMEN IS SOFT BOWEL SOUNDS PRESENT LUNGS IS CLEAR. PATIENT IS NOT ABLE TO TELL ME ABOUT SI/HI/AH/VH DUE TO COGNITIVE DO. PATIENT HAS BEEN CALM COOPERATIVE BUT IS SOMETIMES COMBATIVE WITH CARES. WILL CONTINUE TO MONITOR PATIENT FOR SAFETY AND BEHAVIORS.
[2020-06-20 20:01] VITALS: BP 134/81
[2020-06-21 05:44] LABS: HEMATOCRIT 36.5 % (42.0-52.0); MCHC 32.8 g/dL (28.0-37.0); MCV 94.5 fL (80.0-100.0); RBC 3.86 mil/uL (4.50-6.00); RDW 15.6 % (10.5-14.5); WBC 10.8 thou/uL (4.0-11.0)
[2020-06-21 06:13] LABS: CALCIUM 9.1 mg/dL (8.5-10.1); CREATININE 2.1 mg/dL (0.7-1.3); MAGNESIUM 2.2 mg/dL (1.8-2.4); POTASSIUM 4.9 mmol/L (3.5-5.1)
--- NOTE | 2020-06-21 06:21 | NUR ---
06-20-20 CARE TRANSFERRED 0. PT AAOX1, VSS, RR EVEN AND NONLABORED RA, PT DENIES PAIN AND SI/HI, NOTED PT RIGHT GREAT TOE PURPLING WITH SWELLING PER SHIFT REPORT PT STUBBED TOE. PT IS ON 1:1. PT HAD NO DIFFICLUTIES DURING MEDICATIN ADMIN. PT BED WAS ADJUSTED FOR COMFORT, ZERO S/S OF ACUTE DISTRESS NOTED. PT WILL CONTINUE TO BE MONITOR PER [facility] PROTOCOL.
[2020-06-21 07:06] VITALS: BP 111/57
[2020-06-21 09:05] VITALS: BP 111/57
--- NOTE | 2020-06-21 13:03 | NUR ---
LISSETTE received a call from Jen with [facility] stating that they did agree to accept pt back. They can do so as long as his behaviors have subsided. LISSETTE informed her that the family really wants him to return to [facility]. LISSETTE contacted Kristie with [facility] and provided an update on pt. She gave the fax number of [phone] to send updates to. She said that in order to return pt must be assessed by their staff (via Zoom is ok) and will need a covid test within 24 hours of d/c. SW team will continue to follow pt during his stay on this unit.
--- NOTE | 2020-06-21 16:35 | NUR ---
Skin assessment completed. Patient calm and cooperative during assessment. Patient has 2 old skin tears RADHA to left elbow (areas scabbed over), 1 old skin tear to upper left forearm (dressing CDI), 1 old skin tear to top of left hand (dressing CDI). Patient has an old bruise to right lateral lower back, green/yellow in color. Patient has a dark purple bruise to left great toe. Pulses equal to bilateral lower extremities. Skin cold to the touch to the left lower extremity below the knee, compared to the right lower extremity. Dr. Angeles notified. Order obtained for venous doppler to left lower extremity. Order placed. GENERAL TELLER reports that patient right elbow was swollen yesterday. No swelling or open areas present at this time. Tissue does feel "mushy" upon palpation. Dr. Angeles notified of this and will examine patient tomorrow. Patient displayed no s/s of pain or discomfort during assessment. No verbal complaints of pain reported.
--- NOTE | 2020-06-21 17:21 | NUR ---
Assumed pt care at 0700.pt was in the day room resting on the Argelia chair. pt was oriented to self. Assessment completed and VSS. pT great toe is purple. pt was calm and co-operative with care and medication administration. pt took his medication crushed with yogurt.pt ambulates with a Argelia chair. pt C/O OF PAIN, TYLENOL 650mg PRN was given at 1528 for pain relief. Pt denies SI/HI. pt is on one on one. At this time pt is resting on the Argelia chair. There is no sign of distress noted. Will continue to monitor.
[2020-06-21 19:28] VITALS: BP 104/53
[2020-06-22 00:20] LABS: BE(vivo) -6.5 mmol/L (-2 to +3); HCO3 16.2 mmol/L (22.0-26.0); PCO2 24.8 mmHg (35.0-45.0); PO2 84.1 mmHg (80.0-100.0); pH 7.432 (7.360-7.450); sO2 96.8 % (92.0-98.0)
--- NOTE | 2020-06-22 01:00 | NUR ---
06-21-20 CARE TRANSFERRED 0 OBSERVED PT SITTING IN GERICHAIR IN DAY ROOM. PT AAOX1, VSS, RR EVEN AND NONLABORED ON RA. PT REPORTED PAIN IN LEFT GREAT TOE AND PAIN MANAGED WITH PRN MEDICATION. NO OBSERVED OF SI/HI, PT IS ON 1:1
--- NOTE | 2020-06-22 01:05 | NUR ---
brand activation manager called for decreased loc and low oxygen sats, see brand activation manager flowsheet.
[2020-06-22 01:27] LABS: HEMATOCRIT 34.2 % (42.0-52.0); HEMOGLOBIN 10.8 gm/dL (14.0-18.0); MCH 30.5 pg (26.0-34.0); MCHC 31.6 g/dL (28.0-37.0); MCV 96.5 fL (80.0-100.0); RBC 3.54 mil/uL (4.50-6.00); RDW 16.1 % (10.5-14.5); WBC 4.1 thou/uL (4.0-11.0)
[2020-06-22 01:31] LABS: POTASSIUM 4.4 mmol/L (3.5-5.1)
[2020-06-22 01:34] LABS: CREATININE 4.2 mg/dL (0.7-1.3)
[2020-06-22 01:37] LABS: ALBUMIN 2.3 g/dL (3.4-5.0); TOTAL BILIRUBIN 0.5 mg/dL (0.2-1.0); TOTAL PROTEIN 6.3 g/dL (6.4-8.2)
== END 2020-06-22 00:45 | disposition home or self-care (01) | DRG 881 ==
LOC: SBH → EROBS 06-10 04:04 → SBH 06-10 04:04
PROVIDERS: Internal Medicine; Nurse Practitioner Family; ADMIT Psychiatry & Neurology Psychiatry; ATTEND Psychiatry & Neurology Psychiatry
PROC: 05HY33Z Insertion of Infusion Device into Upper Vein, Percutaneous Approach (ICD-10-PCS; principal; 2020-06-22)
DX: F32.9 Major depressive disorder, single episode, unspecified (principal); N17.9 Acute kidney failure, unspecified; F03.91 Unspecified dementia, unspecified severity, with behavioral disturbance; N39.0 Urinary tract infection, site not specified; E11.9 Type 2 diabetes mellitus without complications; I10 Essential (primary) hypertension; E78.5 Hyperlipidemia, unspecified; G47.33 Obstructive sleep apnea (adult) (pediatric); Z86.16 Personal history of COVID-19; G40.409 Other generalized epilepsy and epileptic syndromes, not intractable, without status epilepticus; Z86.73 Personal history of transient ischemic attack (TIA), and cerebral infarction without residual deficits; Z88.8 Allergy status to other drugs, medicaments and biological substances; Z79.82 Long term (current) use of aspirin; Z79.899 Other long term (current) drug therapy
CPT/HCPCS: 10880

== ENCOUNTER 2020-06-09 19:29 | Inpatient (IN) | payer OTHER, BC ==
[~2020-06-09] VITALS: Ht 182.9 cm; Wt 99.8 kg
[2020-06-09 19:31] VITALS: BP 123/65
[2020-06-09 20:45] LABS: ANION GAP 4 mmol/L (7-16); BUN 10 mg/dL (7-18); CALCIUM 8.8 mg/dL (8.5-10.1); CHLORIDE 102 mmol/L (98-107); CO2 31 mmol/L (21-32); CREATININE 0.8 mg/dL (0.7-1.3); GLUCOSE 125 mg/dL (74-106); POTASSIUM 4.1 mmol/L (3.5-5.1); SODIUM 137 mmol/L (136-145)
[2020-06-09 20:49] LABS: ABSOLUTE NEUTROPHILS 3.3 thou/uL (1.4-8.2); EOSINOPHILS 1.7 % (0.0-3.0); HEMATOCRIT 32.4 % (42.0-52.0); HEMOGLOBIN 10.6 gm/dL (14.0-18.0); LYMPHOCYTES 23.3 % (24.0-44.0); MCH 30.7 pg (26.0-34.0); MCHC 32.6 g/dL (28.0-37.0); MCV 94.4 fL (80.0-100.0); MONOCYTES 9.5 % (1.0-8.0); PLATELET COUNT 127 thou/uL (150-400); POLYS 64.5 % (36.0-66.0); RBC 3.43 mil/uL (4.50-6.00); RDW 17.5 % (10.5-14.5); WBC 5.2 thou/uL (4.0-11.0)
[2020-06-09 20:54] LABS: ALBUMIN 2.5 g/dL (3.4-5.0); DIRECT BILIRUBIN < 0.1 mg/dL (<0.1-0.2); SALICYLATE < 2.8 mg/dL (2.8-20.0); SGOT 18 U/L (15-37); SGPT 18 U/L (16-63); TOTAL BILIRUBIN 0.3 mg/dL (0.2-1.0); TOTAL PROTEIN 5.9 g/dL (6.4-8.2)
[2020-06-09 21:33] LABS: AMP/METHAMP Negative (Negative); BARBITURATES Negative (Negative); BENZODIAZEPINES Negative (Negative); COCAINE Negative (Negative); METHADONE Negative (Negative); OPIATES Negative (Negative); PCP Negative (Negative)
--- NOTE | 2020-06-10 02:41 | NUR ---
DOES NOT KNOW MEDS, WILL GET MEDS FROM [facility]
[2020-06-10 05:42] VITALS: BP 123/77
[2020-06-10] MEDS ORDERED: SENNA PLUS TAB1 EACH PO (06:00)
[2020-06-10] MEDS ORDERED: GAS RELIEF80 MG PO (06:03)
[2020-06-10] MEDS ORDERED: FLOMAX0.4 MG PO (06:04)
[2020-06-10] MEDS ORDERED: CALCIUM CARBON500 MG PO (06:05)
[2020-06-10] MEDS ORDERED: VALPROIC ACID250 MG PO (06:06)
[2020-06-10] MEDS ORDERED: ZOFRAN4 MG PO (06:06)
== END 2020-06-10 05:22 | DRG 881 ==
LOC: ER 19:29 → EROBS 06-10 04:18
PROVIDERS: Nurse Practitioner; ADMIT Internal Medicine; ATTEND Psychiatry & Neurology Psychiatry
DX: F32.9 Major depressive disorder, single episode, unspecified (principal); U07.1 COVID-19; G40.919 Epilepsy, unspecified, intractable, without status epilepticus; F01.51 Vascular dementia, unspecified severity, with behavioral disturbance; E11.9 Type 2 diabetes mellitus without complications; I10 Essential (primary) hypertension; E78.5 Hyperlipidemia, unspecified; Z66 Do not resuscitate; G47.33 Obstructive sleep apnea (adult) (pediatric); G47.00 Insomnia, unspecified; Z86.16 Personal history of COVID-19; Z86.73 Personal history of transient ischemic attack (TIA), and cerebral infarction without residual deficits; Z88.8 Allergy status to other drugs, medicaments and biological substances; Z79.82 Long term (current) use of aspirin; Z79.899 Other long term (current) drug therapy

== ENCOUNTER 2020-06-22 00:58 | Inpatient (IN) | payer OTHER, BC ==
[2020-06-22] VITALS (26 sets, daily range): BP systolic 65–103; BP diastolic 35–74
[~2020-06-22] VITALS: Ht 182.9 cm; Wt 78.7 kg
[~2020-06-22 00:58] MED LIST changes: +CALCIUM CARBON500 MG PO; +FLOMAX0.4 MG PO; +GAS RELIEF80 MG PO; +SENNA PLUS TAB1 EACH PO; +VALPROIC ACID250 MG PO; +ZOFRAN4 MG PO
[2020-06-22 03:14] LABS: HEMATOCRIT 32.2 % (42.0-52.0); HEMOGLOBIN 10.4 gm/dL (14.0-18.0); MCH 30.7 pg (26.0-34.0); MCHC 32.2 g/dL (28.0-37.0); MCV 95.3 fL (80.0-100.0); RBC 3.38 mil/uL (4.50-6.00); RDW 15.4 % (10.5-14.5); WBC 6.7 thou/uL (4.0-11.0)
[2020-06-22 03:28] LABS: ALBUMIN 2.1 g/dL (3.4-5.0); CALCIUM 8.6 mg/dL (8.5-10.1); CREATININE 4.2 mg/dL (0.7-1.3); POTASSIUM 3.6 mmol/L (3.5-5.1); TOTAL BILIRUBIN 0.4 mg/dL (0.2-1.0); TOTAL PROTEIN 5.9 g/dL (6.4-8.2)
[2020-06-22 05:06] LABS: URINE BILIRUBIN NEGATIVE (Negative); URINE BLOOD 3+ (Negative); URINE CLARITY TURBID; URINE COLOR YELLOW; URINE GLUCOSE-RANDOM* NEGATIVE (Negative); URINE KETONES NEGATIVE (Negative); URINE NITRITE-REFLEX NEGATIVE (Negative); URINE PROTEIN (DIPSTICK) 2+ (Negative); URINE SPECIFIC GRAVITY 1.025 (1.005-1.035); URINE UROBILINOGEN 0.2 E.U./dl (0.2-1.0)
[2020-06-22 05:24] LABS: BACTERIA-REFLEX >30 Many /HPF (None Seen); CASTS None Seen /LPF (None Seen); CRYSTALS None Seen /LPF (None Seen); SQUAMOUS 4-10 Moderate /LPF (0-3); URINE LEUKOCYTES-REFLEX 3+ (Negative); URINE RBC >20 Many /HPF (0-2); URINE WBC-REFLEX >25 Many /HPF (0-5)
--- NOTE | 2020-06-22 05:53 | NUR ---
PT IS ADMITTED TO THE FLOOR AROUND 0050; PT IS DROWSY AND CAN NOT FOLLOW COMMANDS, ST ON THE MONITOR, FLUIDS STARTED AND MEDICATION GIVEN PER MAR, KERNS CATHETHER PLACED PER UTILITY ASSEMBLER ORDERS, 1500 CC PURULENT URINE OUT OF KERNS, URINE SAMPLE SEND TO LAB, PT LACTIC ACID OF 5.6, UTILITY ASSEMBLER NOTIFIED; MORE FLUIDS ORDERED, PT ADMISSION ASSESSMENT COMPLETED AND CHARTED, PT UNABLE TO SIGN CONSENTS D/T HIS MENTATION STATUS, BP BETTER, LOW GRADE FEVER, PT RESTING IN BED WITH EYES CLOSED; WILL PASS ON REPORT
--- NOTE | 2020-06-22 09:53 | NUR ---
ORDERS RECEIVED FOR P.T. EVAL AND TREAT WHEN Pt WAS ON CCU (217). Pt THEN TRANSFERRED TO ICU. WILL NOW PLACE Pt ON HOLD D/T MEDICAL STATUS CHANGE AND WILL AWAIT NEW ORDERS.
--- NOTE | 2020-06-22 11:36 | NUR ---
VAT CONSULTED FOR CVAR. PT'S LABS,MEDS,HX,ORDER AND CONSENT VERIFIED. RIJ WAS WIDELY PATENT WITH USG. 6FR TL POWER JACC 25CM INSERTED TO 8CM EXTERNAL. GAUZE TO SITE,BLEEDING,PRESSURE HELD. STAT CXR ORDERED. PT TOLERATED WELL.
--- NOTE | 2020-06-22 20:00 | NUR ---
PT TRANSFERED TO ROOM 447. NOTIFIED JORJE ([facility]) OF NEW ROOM INFORMATION. ALL QUESTIONS ANSWERED AT THAT TIME.
--- NOTE | 2020-06-23 04:41 | NUR ---
PT TRANSFERD FROM ICU. ALERT TO SELF. SLEEPING. ON COMFORT CARE. 2L OF O2. PT AWAKE RESTLESS. MORPHINE GIVEN FOR PAIN. FALL PREC IN PLACE. PT NPO. NO FURTHER SIGNS OF DISCOMFORT. REPOSITIONED PT FOR COMFORT. FALL PREC IN PLACE AND FREQ ROUNDING DONE. WILL CONT TO MONITOR
[2020-06-23 04:49] VITALS: BP 96/63
--- NOTE | 2020-06-23 07:53 | NUR ---
ASSUMED CARE OF PATIENT HE IS RESTING IN BED IS RESTLESS TAKING OFF CLOTHES REPOSITIONED, TV ON, BED ALARM ON. COMFORT CARE PATIENT. KERNS CATH TO D/D. WILL FOLLOW POC.
[2020-06-23 08:51] VITALS: BP 107/65
--- NOTE | 2020-06-23 12:25 | NUR ---
SW reviewed pt's chart and saw he is now on comfort care. LISSETTE reached out to both Jamila and Marilyn to do a check in. Both said they were well and Marilyn said she brought her mom to see her dad. No other needs for SW team to address at this time.
--- NOTE | 2020-06-23 14:25 | NUR ---
PT WAS TRANSFERED TO YESTERDAY EVENING AFTER BEING MADE COMFORT MEASURES. PT HAD BEEN ON SB PREVIOUSLY AND HAD RESPITORY ARREST PT WENT TO ICU. PT HAD BEEN AT [facility]IOR TO [facility] BUT RESIDES AT [facility]. FAMILY HAD PREVIOUSLY INDICATED DESIRE FOR PT TO RETURN TO [place] INSTEAD OF SKILLED POST ACUTE CARE STAY. CM MET WITH PT'S DTR JENA AND SPOUSE AT BEDSIDE. THEY CONFIRMED THE ABOVE. CM INDICATED THAT CM WOULD SPEAK LESLIE WESLEY AT THE [facility] AND SEE IF THEY WOULD BE ABLE TO ACCEPT PT BACK ON HOSPICE SERVICES. CM SPOKE WITH MARYJANE AND SHE INDICATED SHE WOULD SPEAK WIHT HER ED AND CALL CM BACK. CM AWAITING RESPONSE AT THIS TIME. FAMILY SIGNED OUTSIDE HOSPITAL DNR FORM. THEY INDICATED NO PREFERENCE FOR HOSPICE PROVIDER. CM TO FOLLOW INDICATED WITH DC PLANNING.
[2020-06-23 16:35] VITALS: BP 107/61
--- NOTE | 2020-06-23 16:58 | NUR ---
PATIENT DISCHARGING TO [facility] GAVE REPORT TO MCKENNA AT [phone] [facility] TO QUALITY CONTROL ANALYST AT 18:00 FACILITY WANTS IV ACSESS DCD BUT LEAVE KERNS IN PLACE AND DAUGHTER AT BEDSIDE.
--- NOTE | 2020-06-23 19:55 | NUR ---
[facility] HERE TO TRANSPORT PATIENT TO [facility] PATIENT WAS FROM THAT FACILITY. ASSIST XS 4 TO ZEYNEP ALL IV ACSESS WAS DCD PER REQUEST FROM [facility] KERNS WAS LEFT IN PLACE. PATIENT GIVEN MORPHINE BEFORE IV WAS PULLED FOR ANXIETY. PULLS AT THINGS AND YELLS, CONFUSED AT TIMES TAKES O2 PER NC OFF. PT'S FAMILY HERE BEFORE PATIENT TRANSFERRED. NO BELONGINGS IN ROOM.
--- NOTE | 2020-06-24 07:15 | EKG ---
[address] [address] ELECTROCARDIOGRAM REPORT Name: GURINDER PACHECO Room #: 447-[facility] IN ..#: [id number] Admission: 06/22/20 Attend Phys: Evan Angeles MD Discharge: 06/23/20 Date of : 38 Report #: [id number] [facility] Test Date: 2020-06-22 Test Time: 00:23:32 Pat Name: GURINDER PACHECO Department: Room: [facility] Gender: M State Manager: [email or web address] : 1940 Requested By: Evan Angeles Order Number: [id number] MD: Savage Mack Measurements Intervals [place] Rate: 143 P: 0 CA: 60 QRS: -103 QRSD: 132 T: 52 QT: 378 QTc: 583 Interpretive Statements Suspect Atrial Flutter 2;1 block Right bundle branch block Compared to ECG 06/08/2019 11:15:55 Sinus rhythm no longer present First degree AV block no longer present Left anterior fascicular block no longer present Electronically Signed On 06-24-2020 7:15:17 [employer] SOFTWARE DEVELOPMENT ENGINEER by Savage Mack [email or web address] <ELECTRONICALLY SIGNED> By: Savage Mack MD, FAC 06/24/20 0715 0023 002 Savage Mack MD, [facility] /EPI
[2020-06-24] MEDS ORDERED: MORPHINE S10 MG/5 M2 PO (11:11)
== END 2020-06-23 19:45 | disposition hospice, home (50) | DRG 871 ==
LOC: 2N 00:58 → ICU 08:46 → 4S 19:49
PROVIDERS: Nurse Practitioner Family; ADMIT Hospitalist; ATTEND Hospitalist
PROC: 02H633Z Insertion of Infusion Device into Right Atrium, Percutaneous Approach (ICD-10-PCS; principal; 2020-06-22)
DX: A41.9 Sepsis, unspecified organism (principal); R65.21 Severe sepsis with septic shock; J96.01 Acute respiratory failure with hypoxia; N12 Tubulo-interstitial nephritis, not specified as acute or chronic; N17.9 Acute kidney failure, unspecified; Z66 Do not resuscitate; Z51.5 Encounter for palliative care; I95.9 Hypotension, unspecified; E11.9 Type 2 diabetes mellitus without complications; R41.9 Unspecified symptoms and signs involving cognitive functions and awareness; G47.33 Obstructive sleep apnea (adult) (pediatric); G40.909 Epilepsy, unspecified, not intractable, without status epilepticus; I10 Essential (primary) hypertension; E78.5 Hyperlipidemia, unspecified; Z86.16 Personal history of COVID-19; F32.9 Major depressive disorder, single episode, unspecified; F03.90 Unspecified dementia, unspecified severity, without behavioral disturbance, psychotic disturbance, mood disturbance, and anxiety; Z79.82 Long term (current) use of aspirin; Z86.73 Personal history of transient ischemic attack (TIA), and cerebral infarction without residual deficits; Z79.899 Other long term (current) drug therapy; Z87.01 Personal history of pneumonia (recurrent)
CPT/HCPCS: 10195

== ENCOUNTER 2020-06-23 21:04 | Inpatient (IN) | payer OTHER, BC ==
[~2020-06-23] VITALS: Ht 170.2 cm; Wt 72.6 kg
[2020-06-23 21:06] VITALS: BP 109/58
[2020-06-23 23:19] VITALS: BP 123/76
--- NOTE | 2020-06-23 23:22 | NUR ---
Called to give report to LEÓN Vee but was told she was busy and will call back when she has time
[2020-06-24 00:12] VITALS: BP 100/55
--- NOTE | 2020-06-24 02:52 | NUR ---
PT WAS DISCHARGED FROM THE UNIT AT SHIFT CHANGE BUT LATER ADMITTED BACK THROUGH THE ER BC THE FACILITY HE WAS SUPPOSED TO GO TO HAVE NOT ENOUGH STAFF TO CARE FOR PT.PT'S DTR JORJE AWARE THAT PT WAS BROUGHT BACK TO THE HOSPITAL.PT HAS SKIN TEAR TO THE BACK OF HIS HANDS.HIS BUTTOCK RED.KERNS CATH IN PLACE WITH BRIGHT RED BLOOD NOTED IN THE BAG DUE TO PT CONSTANTLY PULLING ON THE CATHETER.PT ON COMFORT CARE/HOSPICE.PT ALERT /CONFUSED AND COMBATIVE WITH CARE.ACCORDING TO PT'S DTR,PT BLIND IN L EYE,A BIT OF SITE R EYE.PT RESTING ON HIS BED AT THIS TIME.
[2020-06-24 05:18] VITALS: BP 108/71
[2020-06-24 07:35] VITALS: BP 127/77
--- NOTE | 2020-06-24 07:57 | NUR ---
PT RESTING AT THIS TIME WITH EYES CLOSED. NO SIGNS OF PAIN OR DISTRESS.
--- NOTE | 2020-06-24 08:38 | NUR ---
CM REVIEWED CHART, PT WAS D/C TO [facility] YESTERDAY TO RESUME CARE W/[facility], HOWEVER PT WAS SENT BACK TO [facility] D/T LACK OF NURSING STAFF IN [facility]ARE UNIT AT FACILITY. CRISTIAN SPK W/PT DTR, EDWIN, WHO HAD A MISUNDERSTANDING OF [facility] PROVIDED, IN THAT SHE THOUGHT PT WOULD HAVE A 24/7 HOSPICE PRESENCE. CRISTIAN EDU EDWIN RE H[facility]. CM ADVISED PERHAPS HIRING C/G OR ARRANGE FAMILY SCHEDULE TO SIT BEDSIDE W/PT IN MEMORY CARE UNIT TO SUPPLEMENT HOSPICE CARE. EDWIN WILL CONTACT [facility] TO GET STAFF FREQ AND [facility] W/[facility] TO ASK WHAT THEIR REQUIREMENTS ARE FOR PT TO RTRN TO FACILITY AND CONTACT CM BACK. EDWIN WANTS TO KNOW IF THERE IS ANYTHING ELSE PT COULD BE PRESCRIBED TO HELP KEEP HIM CALM PT WAS VERY RESTLESS PULLING ON KERNS, GRABBING AT PPL AND TRYING TO GET OFF STRETCHER, THIS IS WHY [facility] DIDNT NOT THNK THEY COULD MANAGE PT'S LEVEL OF CARE. CM TO CONT TO FOLLOW.
--- NOTE | 2020-06-24 09:12 | NUR ---
Notification of pt with high nutrition screening risk. Chart has been reviewed and note pt is on comfort care measures. Available as needed.
--- NOTE | 2020-06-24 09:15 | NUR ---
PT YELLING OUT THAT HE NEEDED TO PEE. PT GRABBING ONTO KERNS WITH A STRONG ARMORING MACHINE OPERATOR, NEEDED ASSISTANCE TO GET HANDS OFF KERNS. PT HAS BLOOD TINGED URINE AND A CLOT IN THE KERNS TUBE. PLACED KERNS TUBING OVER LEG DUE TO IT BEING UNDER HIS LEG AND WAS SECURED. SECURED WITH STAT LOCK. NO OUTPUT NOTED SINCE TUBING ON TOP OF LEG. KERNS NEEDING IRRIGATED IN ORDER TO CHECK FOR CLOTS.
--- NOTE | 2020-06-24 09:53 | NUR ---
WITH ASSISTANCE FROM A ANOTHER NURSE PT KERNS D/C AND A NEW 16 [place] KERNS PLACED. PT DID HAVE SOME BLOOD CLOTS IN KERNS TUBING AND NEEDED IRRIGATED IN ORDER TO SEE YELLOW URINE. PT HAD IMMEDIATE RETURN OF URINE MEASURED 1700ML WITH SEDIMENT. ADM MORPHINE 2MG IV AND ALSO HALDOL 1MG IV FOR AGITATION AND PAIN. BARRIER CREAM APPLIED TO BUTTOCKS, NO OPEN AREAS NOTED. PT TURNED AND PILLOWS PLACED TO HIS BACK. PT SEEMS COMFORTABLE. DTR HERE TO SEE PT AND HAD CONCERNS ABOUT HIS MEDICATION WHEN HE RETURNS TO FACILITY.
--- NOTE | 2020-06-24 10:55 | NUR ---
WOUND CARE CONSULT; DAUGHTER AT BS, PT SLEEPING, SKIN TEAR NOTED L HAND, NO S/S INFECTION, MARATHON PREP APPLIED, SACRUM AREA MAY, NO S/S INFECTION, NO DRAINAGE, STAGE 2 ULCER, 1CM X.3CM X.2CM, VETERINARY TOXICOLOGIST ALONSO PRESENT, PHOTOS IN CHART,LARGE BRUISED AREA L GREAT TOE, NO OPEN WOUND ON TOES RECOMMENDATIONS; 1-LOW AIR LOSS PUMP TO BED, ORDERED 2-Z GUARD TO SACRAL AREA DAILY AND PRN 3-MARATHON TO SKIN TEARS L HAND VETERINARY TOXICOLOGIST AWARE
[2020-06-24] MEDS ORDERED: MORPHINE S10 MG/5 M2 PO (11:11)
--- NOTE | 2020-06-24 14:43 | NUR ---
cm left copies of transportation form and out of hospital dnr on pt's chart.
--- NOTE | 2020-06-24 14:53 | NUR ---
PT DTR, EDWIN, SIGNED [place] LETTER. CM PLACED A COPY IN THE PT'S CHART.
[2020-06-24 16:05] VITALS: BP 124/72
--- NOTE | 2020-06-24 17:51 | NUR ---
PT RESTING AND PERIODIC WAKING UP AND MOVING HANDS. FAMILY VISITED TODAY AND WANTED PT TO STAY TILL SATURDAY FOR MED CONTROL AND FACILITY STAFFING. FAMILY WANTS HIS MEDICATION TO BE AFFECTIVE BEFORE HE GETS TO FACILITY. TOLD FAMILY THAT DR. GALLO STATED HE CAN STAY TODAY TO MONITOR HIS MEDICATIONS.
--- NOTE | 2020-06-24 19:00 | NUR ---
TURNED PT AND TOWARDS BACK. PT DIDN'T SEEM TO BE IN ANY PAIN. PT UNABLE TO EAT DINNER DUE TO SOMULANCE.
--- NOTE | 2020-06-24 19:28 | NUR ---
EMPTIED ANOTHER 1000ML OF TEA COLOR URINE, NO SIGNS OF BLOOD CLOTS.
[2020-06-24 20:49] VITALS: BP 135/78
--- NOTE | 2020-06-25 02:30 | NUR ---
ASSESSED AT START OF SHIFT. PT IN BED. NIGHT TIME MEDS GIVEN WITH THICK LIQUID ONE AT A TIME AND PT DAVINA IT WELL. PT RESTLESS AND YELLING OUT, PULLING ON FOLLEY. HALDOL GIVEN. FREQ ROUNDING DONE. PO FLUIDS PROVIDED. FALL PRWC IN PLACE AND WILL CONT TO MONITOR.
[2020-06-25 08:13] VITALS: BP 156/112
--- NOTE | 2020-06-25 12:23 | NUR ---
PT CARE ASSUMED AT 0700. PT VERY AGGITATED. IV ATIVAN GIVEN. PT NOT ABLE TO SWALLOW HIS DEPAKO DUE TO HIS AGGITATION. IV PATENT WITH NO REDNESS OR EDEMA, SALINE LOCKED. PT MEDICATION ADJUSTED TO HOURLY RATHER THEN Q4H PER COMFORT CARE ORDERS. PT REFUSING TO EAT ANY OF HIS FOOD AND SPITTING IT OUT. DNR. KERNS IN PLACE WITH MINIMUM OUTPUT. FALL PROTOCOL IN PLACE. CALL LIGHT IN REACH. FAMILY AT BEDSIDE. WILL CONTINUE TO MONITOR.
--- NOTE | 2020-06-25 12:59 | NUR ---
SPOKE WITH UNIT NURSE LEÓN FISHER REGARDING PATIENT'S DIMINISHED CHANGE OF STATUS. HE WILL NOT BE DISCHARGED TODAY. FAMILY WITH PATIENT AT THIS TIME.
[2020-06-25 16:03] VITALS: BP 114/71
[2020-06-25 20:34] VITALS: BP 73/41
--- NOTE | 2020-06-25 21:40 | NUR ---
PT WAS OBSERVED WITH HIS EYES CLOSED AND LYING ON HIS BED.PT WITH AGONAL BREATHING AT START OF SHIFT.PAIN MED GIVEN WITH REPOSITIONING.PT'S OLANZAPINE NOT GIVEN ,PT UNABLE TO SWALLOW AT THIS TIME.PT RESTING ON HIS BED,NOT AGITATED,HS MED HELD.PT ON 2L/NC FOR COMFORT.KERNS CATH IN PLACE WITH NO OUTPUT NOTED.
[2020-06-26 07:30] VITALS: BP 74/42
--- NOTE | 2020-06-26 18:50 | NUR ---
1034 - PT ASSESSED AT START OF SHIFT. UNRESPONSIVE, SEMICOMATOSE. PALE, MOTTLED. AGONAL BREATHING W/ SBP IN THE 40'S. PT PRONOUNCED AT THIS TIME BY 2 RN'S, DONALD AND OLIMPIA MAZARIEGOS RN'S PER DR. VALENCIA'S ORDER. DAUGHTER NOTIFIED AFTER DOCTOR. BELONGINGS BAGGED AND SENT TO SECURITY TO BE PICKED UP TOMORROW.
== END 2020-06-26 10:34 | DRG 871 ==
LOC: ER 21:04 → EROBS 21:30 → 4S 21:30
PROVIDERS: ADMIT Hospitalist; ATTEND Hospitalist
DX: A41.9 Sepsis, unspecified organism (principal); R65.21 Severe sepsis with septic shock; F01.51 Vascular dementia, unspecified severity, with behavioral disturbance; R45.1 Restlessness and agitation; I10 Essential (primary) hypertension; E78.5 Hyperlipidemia, unspecified; E11.9 Type 2 diabetes mellitus without complications; G47.33 Obstructive sleep apnea (adult) (pediatric); F32.9 Major depressive disorder, single episode, unspecified; G47.00 Insomnia, unspecified; Z66 Do not resuscitate; Z51.5 Encounter for palliative care; G40.909 Epilepsy, unspecified, not intractable, without status epilepticus; Z20.822 Contact with and (suspected) exposure to COVID-19; Z86.16 Personal history of COVID-19; Z86.73 Personal history of transient ischemic attack (TIA), and cerebral infarction without residual deficits; Z87.01 Personal history of pneumonia (recurrent); Z79.899 Other long term (current) drug therapy; Z79.82 Long term (current) use of aspirin
CPT/HCPCS: 10195